=== PATIENT | male | born 1945 | race Caucasian/White ===

== ENCOUNTER → 2017-12-18 18:16 | Outpatient (REF) | payer MEDICARE, OTHER, SELFPAY | LOC: LAB 18:16 | PROVIDERS: Family Provider Family Medicine; PCP Family Medicine; Visit Provider Physician Assistant | DX: Z48.02 Encounter for removal of sutures (principal); Z53.9 Procedure and treatment not carried out, unspecified reason ==

== ENCOUNTER → 2017-12-18 19:08 | Outpatient (REF) | payer MEDICARE, OTHER, SELFPAY | LOC: LAB 19:08 | PROVIDERS: Family Provider Family Medicine; PCP Family Medicine; Visit Provider Physician Assistant | DX: Z48.02 Encounter for removal of sutures (principal); Z53.9 Procedure and treatment not carried out, unspecified reason ==

== ENCOUNTER → 2017-12-18 19:12 | Outpatient (REF) | payer MEDICARE, OTHER, SELFPAY | LOC: LAB 19:12 | PROVIDERS: Family Provider Family Medicine; PCP Family Medicine; Visit Provider Physician Assistant | DX: Z48.02 Encounter for removal of sutures (principal); Z53.9 Procedure and treatment not carried out, unspecified reason ==

== ENCOUNTER → 2017-12-18 19:23 | Outpatient (REF) | payer MEDICARE, OTHER, SELFPAY | LOC: LAB 19:23 | PROVIDERS: Family Provider Family Medicine; PCP Family Medicine; Visit Provider Physician Assistant | DX: Z53.8 Procedure and treatment not carried out for other reasons (principal) ==

== ENCOUNTER → 2017-12-18 19:26 | Outpatient (REF) | payer MEDICARE, OTHER, SELFPAY | LOC: LAB 19:26 | PROVIDERS: Family Provider Family Medicine; PCP Family Medicine; Visit Provider Physician Assistant | DX: Z48.02 Encounter for removal of sutures (principal) | CPT/HCPCS: 87070; 87075; 87147; 87205 ==

== ENCOUNTER → 2018-04-04 14:28 | Outpatient (CLI) | payer MEDICARE, OTHER, SELFPAY | PROVIDERS: Visit Provider Urology | DX: Z12.5 Encounter for screening for malignant neoplasm of prostate (principal); R97.20 Elevated prostate specific antigen [PSA] | CPT/HCPCS: 36415; 84153 ==

== ENCOUNTER → 2018-05-16 16:16 | Outpatient (CLI) | payer MEDICARE, OTHER, SELFPAY ==
[2018-05-16 17:07] LABS: BUN Creatinine Ratio 28.8 (6-22); Blood Urea Nitrogen 23 mg/dL (9-20); Estimated Glomerular Filt Rate > 60.0 mL/min (>60)
== END ==
PROVIDERS: Family Provider Family Medicine; PCP Family Medicine; Visit Provider Family Medicine
DX: Z01.812 Encounter for preprocedural laboratory examination (principal)
CPT/HCPCS: 36415; 82565; 84520

== ENCOUNTER → 2018-05-21 07:35 | Outpatient (CLI) | payer MEDICARE, OTHER, SELFPAY ==
--- NOTE | 2018-05-21 08:37 | DI.CT.S_ITS ---
PROCEDURE: CT ABDOMEN WO/W CON INDICATIONS: PANCREATIC MASS TECHNIQUE: Noncontrast 3 mm thick sections acquired through the pancreas. After the administration of intravenous contrast, 3 mm thick pancreatic-phase images acquired from the diaphragm to the iliac crests. 3 mm thick coronal and sagittal reformats were performed. For radiation dose reduction, the following was used: automated exposure control, adjustment of mA and/or kV according to patient size. COMPARISON: [facility], MR, ABDOMEN W&WO CONTRAST, 11/30/2015, 11:00. [facility], MR, ABDOMEN W&WO CONTRAST, 10/24/2015, 15:16. [facility], CT, ABDOMEN W&WO CONTRAST, 10/20/2015, 11:24. FINDINGS: Image quality: Excellent. Lung bases: Lung bases are clear. Heart size is normal. Pacer leads are seen. A small hiatal hernia is incidentally noted. Pancreas: At the tail of the pancreas, there is again seen a focus of pancreatic tissue, which enhances similarly to the surrounding normal pancreatic tissue. This is overall less apparent than on the 10/20/15 examination. No additional focal pancreatic abnormalities are seen. No dilatation of the pancreatic duct is seen. No peripancreatic inflammatory change or pseudocyst can be seen. Other solid organs: Liver is normal in size and enhancement. Gallbladder wall does not appear thickened. Biliary system is non dilated. Spleen is normal in size and enhancement. Incidental note is made of an accessory spleen along the inferior aspect of the primary spleen. No adrenal nodules. Kidneys are normal in size and enhancement, without hydronephrosis. A mildly hyperdense cyst is seen exophytic from the superior medial aspect of the right kidney that measures 11 mm and 15 Hounsfield units. A simple cyst is seen at the inferior pole of the right kidney measuring 5 Hounsfield scan 11 mm. Peritoneum and bowel: Unenhanced bowel loops demonstrate normal wall thickness and caliber. No free fluid or air. Incidental note is made of a normal-appearing appendix. Nodes and vessels: No retroperitoneal or mesenteric adenopathy by size criteria. Aorta and inferior vena cava are normal in size. Bones: No suspicious bony lesions. No vertebral body compression fractures. Age-appropriate bony degenerative changes are seen. Miscellaneous: No ventral hernias. IMPRESSION: Focal prominence of pancreatic tissue at the tail of the pancreas, which is less apparent on the current study than in 2016 and regarded to be benign. No further imaging followup is recommended. Incidental note is made of: Small hiatal hernia Pacer leads Accessory spleen Benign-appearing right renal cysts Dictated by: Khadar Pat M.D. on 05/21/2018 at 8:23 Approved by: Khadar Pat M.D. on 05/21/2018 at 8:31
== END ==
PROVIDERS: PCP Family Medicine; Visit Provider Family Medicine
DX: K86.9 Disease of pancreas, unspecified (principal); K44.9 Diaphragmatic hernia without obstruction or gangrene; N28.1 Cyst of kidney, acquired
CPT/HCPCS: 74170; Q9967

== ENCOUNTER → 2018-08-16 09:51 | Outpatient (CLI) | payer MEDICARE, OTHER, SELFPAY ==
[2018-08-16 10:27] LABS: INR 4.4 (0.9-1.3); Prothrombin Time 51.8 SECONDS (10.1-12.7)
[2018-08-16 11:15] LABS: Prostate Specific Antigen Scrn 7.62 ng/mL (0.1-4.0)
== END ==
PROVIDERS: PCP Family Medicine; Visit Provider Family Medicine
DX: N40.0 Benign prostatic hyperplasia without lower urinary tract symptoms (principal); R97.20 Elevated prostate specific antigen [PSA]; I48.91 Unspecified atrial fibrillation; Z12.5 Encounter for screening for malignant neoplasm of prostate
CPT/HCPCS: 36415; 85610; G0103

== ENCOUNTER 2018-09-29 10:00 | Outpatient (RCR) | payer MEDICARE, OTHER, SELFPAY ==
[2018-06-03 08:26] VITALS: BP 126/88; BP 128/90; O2SAT 96
--- NOTE | 2018-06-03 10:55 | PR.IEVALNOTE ---
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 Pulmonary Rehab Initial Evaluation [place] Pulmonary Rehab Inital Assessment Start: 06/02/18 08:15 Freq: Status: Active Protocol: Document 06/03/18 08:26 GIOVANNI (Rec: 06/03/18 08:31 GIOVANNI [id number]) SC Exercise Assessment Dx: COPD Primary Language [place] [employer]ker Required No Hearing Ability Normal Visual Impairment No Limitations Visual Difficutly None Musculoskeletal Symptoms Joint Pain Body Alignment Posture Good Posture Relaxed Assistive Devices None Comment R knee pain 3/10 History of Falling (Immediate or No Previous) Secondary Diagnosis (More Than 2 Medical Yes Diagnoses) Ambulatory Aid None/bed rest/nurse assist IV/Heparin Lock No Gait/Transfer Normal/bedrest/immobile Mental Status Oriented to own ability Comment exercise bike 1-2x month, walks 1-2 miles mostly level ground 2-3 month; physical deconditioning and decreased exercise tolerance SC Vital Signs Pulse Oximetry (91-100 %) 96 Respiratory Effort Non-Labored Respiratory Depth Normal Assessment clear to auscultation no wheezes rales ronchi Right Arm Blood Pressure (90/60-140/90 mmHg) 126/88 Blood Pressure Method Manual Cuff/Auscultation Blood Pressure Position Sitting Left Arm Blood Pressure (90/60-140/90 mmHg) 128/90 Blood Pressure Method Manual Cuff/Auscultation Blood Pressure Position Sitting SC Six Minute Walk Test Oxygen Delivery Method Room Air Respiratory Rate (breaths/min) 16 Pulse Rate (beats/min) 61 O2 Saturation by Pulse Oximetry (%) 96 Respiratory Rate (breaths/min) 18 Pulse Rate (beats/min) 88 Ambulation Distance (feet) 200 O2 Saturation by Pulse Oximetry (%) 93 Pulse Rate (beats/min) 87 Ambulation Distance (feet) 250 O2 Saturation by Pulse Oximetry (%) 95 Ambulatory Distance (feet) 250 Pulse Rate (beats/min) 89 Ambulation Distance (feet) 250 O2 Saturation by Pulse Oximetry (%) 96 Pulse Rate (beats/min) 89 Ambulation Distance (feet) 250 O2 Saturation by Pulse Oximetry (%) 96 PUlse Rate (beats/min) 88 Ambulation Distance (feet) 250 O2 Saturation by Pulse Oximetry (%) 88 Respiratory Rate (breaths/min) 14 Pulse Rate (beats/min) 62 O2 Saturation by Pulse Oximetry (%) 98 Activity Tolerance Good Distance 1450 Rody RPE Scale 12 Oriented to RPE Scale Yes Dyspnea 2.5 Oriented to Dyspnea Scale Yes SC Exercise Goals Exercise Goals Treadmill, Nustep, OSMAR, Elliptical, bike( recumbent and upright) DASI Number and Comment 7.98 Short Term Improve exercise 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 Volume/Forced Vital Cap 71 97% Ratio (FEV1/FVC Ratio) Forced Expiratory Volume in 1 sec. 3.20 90% Diffusing Capacity of the Lung (DLCO) 89% SC Education Pre-Test Score 100 Tobacco Use Former, Quit >6 Months Tobacco Product Used cigarettes Total Years Used 8 Packs Per Day 1 Environmental/Occupational Exposure paint and solvent fumes Use Yes Type wine Amount 1-2 glasses Frequency daily Concerns None Education Topics Breathing Retraining Discussed Education Requirements on Yes Intake SC Psychosocial Initial Assess HADS Score 5 HADS Score 4 Marital Status Referral Needed No
--- NOTE | 2018-07-03 16:06 | PR.REVALNOTE ---
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 Re-Assessment Start: 06/02/18 08:15 Freq: Status: Active Protocol: Document 07/03/18 15:50 [facility] (Rec: 07/03/18 16:06 GIOVANNI [id number]) IN Exercise Re-Assessment New Session Number 1-11 Type Nustep Treadmill METs (resistance level) 3.69 NUSTEP,5.78TM % Improvement 16% TM 12.5% NS Interval Training Yes: 6.41 NS, 7.85 TM Shortness of Breath with Exercise Yes Desaturation with Exercise No Free Weight Yes: 6# 12R 2S Band Level Yes: #6 IN Education Re-Assessment Topics Description and Interpretation Medical Tests Breathing Retraining Bronchial Hygiene Medication Benefits of Exercise Goals Pt will Master PLB and Diaphragmatic Breathing Pt will Master Energy Conserving Techniques Pt will learn exercise safety Pt will continue ED topics until completion IN Psychosocial Re-Assessment Patient in Class Regularly Yes Interventions Pt attending class regularly Goals Pt will continue to attend classes 3x wk Participate in social and educational discussion Received emotional support from family/friends
--- NOTE | 2018-07-31 16:16 | PR.REVALNOTE ---
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 Re-Assessment Start: 06/02/18 08:15 Freq: Status: Active Protocol: Document 07/03/18 15:50 [facility] (Rec: 07/03/18 16:06 GIOVANNI [id number]) ID Exercise Re-Assessment New Session Number 1-11 Type Nustep Treadmill METs (resistance level) 3.69 NUSTEP,5.78TM % Improvement 16% TM 12.5% NS Interval Training Yes: 6.41 NS, 7.85 TM Shortness of Breath with Exercise Yes Desaturation with Exercise No Free Weight Yes: 6# 12R 2S Band Level Yes: #6 ID Education Re-Assessment Topics Description and Interpretation Medical Tests Breathing Retraining Bronchial Hygiene Medication Benefits of Exercise Goals Pt will Master PLB and Diaphragmatic Breating Pt will Master Energy Conserving Techniques Pt will learn exercise safety Pt will continue ED topics until completion ID Psychosocial Re-Assessment Patient in Class Regularly Yes Interventions Pt attending class regularly Goals Pt will continue to attend classes 3x wk Participate in social and educational discussion Received emotional support from family/friends Document 07/31/18 16:07 GIOVANNI (Rec: 07/31/18 16:15 GIOVANNI [id number]) ID Exercise Re-Assessment New Session Number 12-21 Type Nustep Treadmill METs (resistance level) 3.69NS, 6.71TM % Improvement 7%NS, 16%TM Interval Training Yes: 7.74NS, 7.02TM Shortness of Breath with Exercise Yes Desaturation with Exercise No Free Weight Yes: 6# 12R 2S Band Level Yes: #6 Toward Target Goals PATIENT HAS INITIATED INDEPENDENT EXERCISE 1-2 X/ WEEK-GOAL MET ID Nutrition Re-Assessment Hypoxia Re-Assessment PATIENT DOES NOT REQUIRE SUPPLEMENTAL OXYGEN AT THIS TIME ID Education Re-Assessment Topics Normal Anatomy and Physiology Chronic Lung Disease Description and Interpretation Medical Tests Breathing Retraining Bronchial Hygiene Benefits of Exercise Goals Pt will Master PLB and Diaphragmatic Breathing Pt will Master Energy Conserving Techniques Pt will learn exercise safety Pt will continue ED topics until completion ID Psychosocial Re-Assessment Patient in Class Regularly Yes Interventions Pt attending class regularly Goals Pt will continue to attend classes 3x wk Participate in social and educational discussion Received emotional support from family/friends
--- NOTE | 2018-09-10 09:46 | PR.REVALNOTE ---
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 Shaun Melvin MD Attending Provider Physician Specialty: Internal Medicine Address: [address] [place] [address] Email: [email or web address] Pulmonary Rehab Re-Evaluation [place] Pulmonary Rehab. Re-Assessment Start: 06/02/18 08:15 Freq: Status: Active Protocol: Document 07/03/18 15:50 [facility] (Rec: 07/03/18 16:06 GIOVANNI [id number]) [place] Exercise Re-Assessment New Session Number 1-11 Type Nustep Treadmill METs (resistance level) 3.69 NUSTEP,5.78TM % Improvement 16% TM 12.5% NS Interval Training Yes: 6.41 NS, 7.85 TM Shortness of Breath with Exercise Yes Desaturation with Exercise No Free Weight Yes: 6# 12R 2S Band Level Yes: #6 NH Education Re-Assessment Topics Description and Interpretation Medical Tests Breathing Retraining Bronchial Hygiene Medication Benefits of Exercise Goals Pt will Master PLB and Diaphragmatic Breating Pt will Master Energy Conserving Techniques Pt will learn exercise safety Pt will continue ED topics until completion NH Psychosocial Re-Assessment Patient in Class Regularly Yes Interventions Pt attending class regularly Goals Pt will continue to attend classes 3x wk Participate in social and educational discussion Received emotional support from family/friends Document 07/31/18 16:07 GIOVANNI (Rec: 07/31/18 16:15 GIOVANNI [id number]) [place] Exercise Re-Assessment New Session Number 12-21 Type Nustep Treadmill METs (resistance level) 3.69NS, 6.71TM % Improvement 7%NS, 16%TM Interval Training Yes: 7.74NS, 7.02TM Shortness of Breath with Exercise Yes Desaturation with Exercise No Free Weight Yes: 6# 12R 2S Band Level Yes: #6 Toward Target Goals PATIENT HAS INITIATED INDEPENDENT EXERCISE 1-2 X/ WEEK-GOAL MET NH Nutrition Re-Assessment Hypoxia Re-Assessment PATIET DOES NOT REQUIRE SUPPLEMENTAL OXYGEN AT THIS TIME NH Education Re-Assessment Topics Normal Anatomy and Physiology Chronic Lung Disease Description and Interpretation Medical Tests Breathing Retraining Bronchial Hygiene Benefits of Exercise Goals Pt will Master PLB and Diaphragmatic Breating Pt will Master Energy Conserving Techniques Pt will learn exercise safety Pt will continue ED topics until completion NH Psychosocial Re-Assessment Patient in Class Regularly Yes Interventions Pt attending class regularly Goals Pt will continue to attend classes 3x wk Participate in social and educational discussion Received emotional support from family/friends Document 09/10/18 09:32 GIOVANNI (Rec: 09/10/18 09:46 GIOVANNI [id number]) [place] Exercise Re-Assessment New Session Number 12-24 Type Nustep Treadmill METs (resistance level) 3.96 NS, 6.36 TM % Improvement 7% NS, 10% TM Interval Training Yes: 6.41 METS NS, 7.85 METS TM Shortness of Breath with Exercise Yes Desaturation with Exercise No Free Weight Yes: 6# 12R 2S Band Level #5 BAND Toward Target Goals INCREASED PARTICIPATION IN PHYSICAL ACTIVITIES IMPROVED FUNCTIONAL CAPACITY WITH IMPROVED ENDURANCE AND STRENGTH, PARTICIPATES IN AEROBIC EXERCISE 30-60 MIN. 3X WEEK RPE 11-13 DYSPNEA 3- GOAL MET AND SHOWING PROGRESS NH Education Re-Assessment Topics Normal Anatomy and Physiology Chronic Lung Disease Description and Interpretation Medical Tests Breathing Retraining Benefits of Exercise Activities of daily living/ Leisure Activities Coping with Chronic Lung Disease Asthma Goals Pt will Master PLB and Diaphragmatic Breathing Pt will Master Energy Conserving Techniques Pt will learn exercise safety Pt will continue ED topics until completion [place] Psychosocial Re-Assessment Patient in Class Regularly Yes Interventions Pt attending class regularly Goals Pt will continue to attend classes 3x wk Participate in social and educational discussion Received emotional support from family/friends
--- NOTE | 2018-10-07 13:40 | PR.DCNOTE ---
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 Shaun Melvin MD Attending Provider Physician Specialty: Internal Medicine Address: [address] [place] [address] Email: [email or web address] Pulmonary Rehab Discharge Evaluation [place] Pulmonary Rehab. DC Assessment Start: 06/02/18 08:15 Freq: Status: Active Protocol: Document 10/07/18 13:14 GIOVANNI (Rec: 10/07/18 13:36 GIOVANNI [id number]) [place] Exercise Discharge Assess Session 9 Type Nustep Treadmill Rower Elliptical METs (resistance level) 4.01 NS, 7.19 TM % Improvement 2.7% NS, 13% TM Interval Training Yes: 8.08 mets 68% overall improvement Shortness of Breath with Exercise Yes Desaturation with Exercise No Free Weight Yes Band Level Yes Toward Target Goals Increased participation in physical activities particpates in independent exercise- goal met UT Nutrition DC Assessment Goals Pt will continue focusing on weight loss Pt will continue to learn tips Patient Ready Yes Reason Completed Max Sessions UT Education DC Assessment Post Test Score 100% Education Topics Normal Pulmonary Anatomy and Physiology Chronic Lung Disease Description and Interpretation of Medical Tests Breathing Retraining Bronchial Hygiene Medications Benefits of Exercise Activities of Daily Living/ Leisure Activities Eating Right Irritant Avoidance/Prevention of Respiratory Infection Coping with Chronic Lung Disease Oxygen How and When Metabolic Syndrome Asthma Education Target Goals Pt was educated on home exercise prescription Pt educated on home resistance training Pt educated on oxygen therapy for home PT educated on medication's taken at home Pt educated on PBL and relaxation techniques UT Psychosocial DC Assessment HADS Depression Score 3 HADS Anxiety Score 1 Phase III Yes UT Six Minute Walk Test Oxygen Delivery Method Room Air Respiratory Rate (breaths/min) 14 Pulse Rate (beats/min) 73 O2 Saturation by Pulse Oximetry (%) 93 Pulse Rate (beats/min) 78 Ambulation Distance (feet) 250 O2 Saturation by Pulse Oximetry (%) 93 Pulse Rate (beats/min) 80 Ambulation Distance (feet) 250 O2 Saturation by Pulse Oximetry (%) 94 Pulse Rate (beats/min) 82 Ambulatory Distance (feet) 300 O2 Saturation by Pulse Oximetry (%) 95 Pulse Rate (beats/min) 83 Ambulation Distance (feet) 350 O2 Saturation by Pulse Oximetry (%) 96 Pulse Rate (beats/min) 85 Ambulation Distance (feet) 300 O2 Saturation by Pulse Oximetry (%) 95 PUlse Rate (beats/min) 90 Ambulation Distance (feet) 300 O2 Saturation by Pulse Oximetry (%) 97 Respiratory Rate (breaths/min) 16 Pulse Rate (beats/min) 72 O2 Saturation by Pulse Oximetry (%) 97 Activity Tolerance Excellent Distance 1750 20% improvement 3.54 mets 13% improvement Rody RPE Scale 11 Oriented to RPE Scale Yes Dyspnea 2.5 Oriented to Dyspnea Scale Yes
== END 2018-10-15 08:05 ==
LOC: PUL 10:00
PROVIDERS: PCP Family Medicine; Visit Provider Internal Medicine
DX: J44.9 Chronic obstructive pulmonary disease, unspecified (principal)
CPT/HCPCS: G0424

== ENCOUNTER → 2019-01-08 09:54 | Outpatient (CLI) | payer MEDICARE, OTHER, SELFPAY ==
[2019-01-08 11:02] LABS: Alanine Aminotransferase 21 IU/L (21-72); Albumin Globulin Ratio 1.5 (1.0-2.8); Alkaline Phosphatase 103 U/L (38-126); Aspartate Aminotransferase 16 IU/L (17-59); BUN Creatinine Ratio 34.3 (6-22); Bilirubin Total 0.6 mg/dL (0.2-1.3); Blood Urea Nitrogen 24 mg/dL (9-20); Calcium 9.2 mg/dL (8.4-10.2); Carbon Dioxide 27 mmol/L (22-32); Chloride 106 mmol/L (98-107); Estimated Glomerular Filt Rate > 60.0 mL/min (>60); Globulin 2.7 g/dL (1.7-4.1); Glucose 90 mg/dL (80-110); HEMOLYSIS < 15 (0-50); Potassium 4.3 mmol/L (3.4-5.1); Sodium 142 mmol/L (137-145); Total Protein 6.7 g/dL (6.3-8.2)
== END ==
PROVIDERS: PCP Family Medicine; Visit Provider Internal Medicine Cardiovascular Disease
DX: I49.5 Sick sinus syndrome (principal); I48.1 Persistent atrial fibrillation
CPT/HCPCS: 36415; 80053

== ENCOUNTER → 2019-02-18 07:05 | Outpatient (CLI) | payer MEDICARE, OTHER, SELFPAY ==
[2019-02-18 08:19] LABS: Add Manual Diff / Slide Review NO; Basophils Absolute Auto 0 /uL (0-100); Basophils Percent Auto 0.8 % (0-2); Eosinophils Absolute Auto 100 /uL (0-450); Eosinophils Percent Auto 1.8 % (2-4); Hematocrit 45.5 % (41-53); Hemoglobin 15.6 g/dL (13.5-17.5); Lymphocytes Absolute Auto 800 /uL (1100-4500); Lymphocytes Percent Auto 15.3 % (25-40); Mean Corpuscular HGB Conc 34.3 % (30-36); Mean Corpuscular Hemoglobin 29.4 PG (26-34); Mean Corpuscular Volume 85.7 fL (80-100); Monocytes Absolute Auto 600 /uL (0-900); Monocytes Percent Auto 11.1 % (3-14); Neutrophils Absolute Auto 3700 /uL (1500-7000); Platelet Count 195 X10^3/uL (150-400); Red Blood Cell Count 5.31 X10^6/uL (4.5-5.9); Red Cell Distribution Width 14.5 % (11.6-14.8); White Blood Cell Count 5.2 X10^3/uL (4.5-11.0)
[2019-02-18 08:32] LABS: Alanine Aminotransferase 32 IU/L (21-72); Albumin 4.3 g/dL (3.5-5.0); Albumin Globulin Ratio 1.4 (1.0-2.8); Alkaline Phosphatase 90 U/L (38-126); Aspartate Aminotransferase 23 IU/L (17-59); BUN Creatinine Ratio 26.3 (6-22); Blood Urea Nitrogen 21 mg/dL (9-20); Calcium 9.5 mg/dL (8.4-10.2); Carbon Dioxide 27 mmol/L (22-32); Chloride 105 mmol/L (98-107); Cholesterol 144 mg/dL (140-199); Estimated Glomerular Filt Rate > 60.0 mL/min (>60); Globulin 3.1 g/dL (1.7-4.1); Glucose 109 mg/dL (80-110); HDL Cholesterol 36 mg/dL (40-60); HEMOLYSIS < 15 (0-50); LDL Cholesterol Calculated 90 mg/dL (<100); Sodium 143 mmol/L (137-145); Total Protein 7.4 g/dL (6.3-8.2); Triglycerides 92 mg/dL (35-150)
[2019-02-18 09:00] LABS: Prostate Specific Antigen Scrn 5.46 ng/mL (0.1-4.0)
[2019-02-18 09:07] LABS: TSH w/ Reflex to FT4 2.93 uIU/mL (0.47-4.68)
[2019-02-18 09:34] LABS: Folate > 20.0 ng/mL (2.76-20.0); Vitamin B12 395 pg/mL (239-931)
== END ==
PROVIDERS: PCP Family Medicine; Visit Provider Family Medicine
DX: R97.20 Elevated prostate specific antigen [PSA] (principal); I25.10 Atherosclerotic heart disease of native coronary artery without angina pectoris; I48.91 Unspecified atrial fibrillation; Z79.01 Long term (current) use of anticoagulants; G62.9 Polyneuropathy, unspecified; Z12.5 Encounter for screening for malignant neoplasm of prostate
CPT/HCPCS: 36415; 80053; 80061; 82607; 82746; 84153; 84443; 85025; G0103

== ENCOUNTER → 2019-03-04 11:37 | Outpatient (CLI) | payer MEDICARE, OTHER, SELFPAY ==
[2019-03-04 12:33] LABS: Appearance Urine UA CLEAR; Bilirubin Urine UA NEGATIVE (NEGATIVE); Color Urine UA YELLOW; Glucose Urine UA NEGATIVE (Negative); Ketones Urine UA NEGATIVE (NEGATIVE); Leukocyte Esterase Urine UA NEGATIVE (NEGATIVE); Nitrite Urine UA NEGATIVE (Negative); Occult Blood Urine UA TRACE-LYSED (Negative); Protein Urine UA NEGATIVE (Negative); Urobilinogen Urine UA 0.2 E.U./dL (0.2); pH Urine UA 6.5 (4.5-8.0)
== END ==
PROVIDERS: PCP Family Medicine; Visit Provider Family Medicine
DX: R35.0 Frequency of micturition (principal); R30.0 Dysuria
CPT/HCPCS: 81003

== ENCOUNTER → 2019-04-16 11:06 | Outpatient (CLI) | payer MEDICARE, OTHER, SELFPAY | PROVIDERS: PCP Family Medicine; Visit Provider Family Medicine | DX: R30.0 Dysuria (principal) | CPT/HCPCS: 87086 ==

== ENCOUNTER 2019-04-16 19:44 | Emergency (ER) | payer MEDICARE, OTHER, SELFPAY ==
[2019-04-16 19:49] VITALS: BP 219/106; PULSE 74; RESP 18; TEMP 35.6; O2SAT 95
--- NOTE | 2019-04-16 20:00 | ED.MALEGU ---
HPI - Male Genitourinary General Chief complaint: Urogenital-Male Stated complaint: difficulty urinating Time Seen by Provider: 04/16/19 19:47 Source: patient Mode of arrival: Ambulatory Limitations: no limitations History of Present Illness HPI Narrative: 73-year-old male former smoker with history of hypertension, AFib, BPH presents with his in the chief complaint of increasing difficulty with urination over the past 24 hours or so and now complete inability to urinate for about the past 8 hours. He admits to frequent visits to the bathroom at night for quite some time and has had some elevating BPH in the past. He denies any dysuria, or hematuria but has had frequency and urgency off and on for some time. He denies any suprapubic or rectal pain nor any fever or shaking chills. He went to his primary care provider earlier today and was diagnosed with possible prostatitis and initiated on antibiotics. His symptoms have worsened since then and on arrival he is quite uncomfortable. He denies any other new medications. He has no back pain no or saddle anesthesia, nor lower extremity weakness. MD Complaint: other Onset (ago): hour(s) Duration: constant Severity: moderate Quality: aching Relieving factors: none Exacerbating factors: movement Associated symptoms: Reports denies other symptoms Related Data Home Medications Medication Instructions Recorded Confirmed cholecalciferol (vitamin D3) 3,000 iu #0 03/02/16 04/16/19 [Vitamin D3] lisinopril 5 mg PO QDAY #0 04/18/16 04/16/19 Respironics RemStar CPAP #1 ea 08/01/18 04/16/19 Previous Rx's Medication Instructions Recorded nitroglycerin [Nitrostat] 0.4 mg SUBLINGUAL PRN PRN #25 tab 03/02/16 metoprolol tartrate 50 mg tablet 50 mg PO BID #180 tab 08/20/18 omeprazole 40 mg capsule,delayed 40 mg PO HS #90 cap 08/29/18 release warfarin 5 mg tablet 5 mg PO SEE INSTRUCTIONS #100 tab 10/28/18 sulfamethoxazole 800 1 tab PO BID #60 tab 04/16/19 mg-trimethoprim 160 mg tablet tamsulosin 0.4 mg capsule 0.4 mg PO DAILY #90 cap 04/16/19 Allergies Allergy/AdvReac Type Severity Reaction Status Date / Time No Known Drug Allergies Allergy Verified 04/16/19 09:59 Patient History Medical History (Updated 04/16/19 @ 20:48 by Venancio Garland DO) Atrial fibrillation (Chronic 10/2014) BCC (basal cell carcinoma of skin) (Resolved) BPH (benign prostatic hyperplasia) (Chronic) Chicken pox (Resolved 1951) GERD (gastroesophageal reflux disease) (Chronic ~1994) Herpes (Resolved 1976) Knee pain (Chronic 1995) Measles (Resolved ~1949) Mumps (Resolved ~1949) Obstructive sleep apnea of adult (Chronic) Snoring (Inactive) 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) Surgical History (Updated 01/31/19 @ 14:28 by CLARA Zarate) Anesthesia (Resolved) History of colonoscopy (Resolved 2004) History of esophagogastroduodenoscopy (EGD) (Resolved 11/11/12) History of esophagogastroduodenoscopy (EGD) (Resolved 10/20/10) History of left heart catheterization (Resolved 03/2016) History of right knee surgery (Resolved 06/26/07) History of squamous cell carcinoma excision (Resolved 08/14/17) History of total left knee replacement (TKR) (Resolved 04/23/16) Status post arthroscopy (Resolved ~1996) Status post arthroscopy (Resolved ~2002) Status post arthroscopy (04/23/16) Status post biopsy (10/20/10) Status post colonoscopy (Resolved) Status post Mohs surgery for basal cell carcinoma (Resolved 2004) Status post placement of cardiac pacemaker (Resolved 12/13/15) Status post surgical manipulation of knee joint (Resolved 07/26/16) Family History Father Cancer Lung cancer Grandfather Cancer Cancer of kidney Mother Atherosclerosis AAA (abdominal aortic aneurysm) Sister Age: 71 Obese Chronic knee pain Chronic foot pain Brother No problems noted. Grandmother Dementia Grandfather No problems noted. Grandmother Brain tumor Sister Fibromyalgia Other CAD (coronary artery disease) Hypertension Social History marital status: details: elvia Romeo, lives in [place] household members: spouse lives independently: Yes caregiver/support person: No housing: house Smoking Status: Former smoker Tobacco: How many years used: 8 alcohol intake: current substance use type: does not use Social History marital status: details: elvia Romeo, lives in [place] household members: spouse lives independently: Yes caregiver/support person: No housing: house Smoking Status: Former smoker Tobacco: How many years used: 8 alcohol intake: current substance use type: does not use alcohol intake frequency: 0-2 drinks per day Alcohol type: wine Substance Use Type: does not use Exam Narrative Exam Narrative: GEN: AOx3 and in mild distress EYES: Pupils are equal, round, and reactive to light and accommodation. Extraoccular muscles are intact bilaterally. There is no subconjunctival hemorrhage or exudate. CHEST: Lungs are clear to auscultation bilaterally and free of wheezes, rales, or rhonchi. Heart rate is regular rhythm, there are no murmurs, clicks, rubs, or gallops. There is no chest wall tenderness. ABD: Abdomen is soft and nontender. There is no guarding or rebound. Bowel sounds are normal in all 4 quadrants. There is no mass or organomegaly. EXT: Full painless ROM of all extremities with no loss of sensation or strength. SKIN: Warm, pink, and dry. No erythema or rash Initial Vital Signs Initial Vital Signs: Vital Signs Temperature 96.0 F L 04/16/19 19:49 Pulse Rate 74 04/16/19 19:49 Respiratory Rate 18 04/16/19 19:49 Blood Pressure 219/106 H 04/16/19 19:49 Pulse Oximetry 95 04/16/19 19:49 Course Orders Ordered: ED Orders 04/16/19 20:26 Basic Metabolic Panel Stat Complete Blood Count AUTO DIFF Stat Reevaluation(s) Reevaluation #1: Near immediate relief after robles placed with 800mL out. Vital Signs Vital signs: Vital Signs - 8 hr 04/16/19 19:49 04/16/19 20:34 Temperature 96.0 F L Pulse Rate 74 89 Respiratory Rate 18 18 Blood Pressure 219/106 H Blood Pressure [Right Arm] 141/87 H Pulse Oximetry 95 95 MDM - Male Genitourinary Lab Data Result diagrams: 04/16/19 20:26 04/16/19 20:26 Labs: Lab Results 04/16/19 04/16/19 Range/Units 20:26 20:26 WBC 9.8 (4.5-11.0) X10^3/uL RBC 5.36 (4.5-5.9) X10^6/uL Hgb 15.6 (13.5-17.5) g/dL Hct 45.8 (41-53) % MCV 85.3 (80-100) fL MCH 29.1 (26-34) PG MCHC 34.1 (30-36) % RDW 14.5 (11.6-14.8) % Plt Count 182 (150-400) X10^3/uL Neut % (Auto) 83.1 H (50-75) % Lymph % (Auto) 6.4 L (25-40) % [place] % (Auto) 9.7 (3-14) % Eos % (Auto) 0.3 L (2-4) % Baso % (Auto) 0.5 (0-2) % Neut # (Auto) 8100 H (0666-8619) /uL Lymph # (Auto) 600 L (9747-0238) /uL [place] # (Auto) 1000 H (0-900) /uL Eos # (Auto) 0 (0-450) /uL Baso # (Auto) 0 (0-100) /uL Sodium 137 (137-145) mmol/L Potassium 3.6 (3.4-5.1) mmol/L Chloride 104 (98-107) mmol/L Carbon Dioxide 21 L (22-32) mmol/L BUN 22 H (9-20) mg/dL Creatinine 0.70 (0.66-1.25) mg/dL Estimated GFR > 60.0 (>60) mL/min BUN/Creatinine Ratio 31.4 H (6-22) Glucose 107 (80-110) mg/dL Calcium 9.3 (8.4-10.2) mg/dL Urine Dip Bedside Urine Glucose Negative Bedside Urine Bilirubin - Negative Bedside Urine Ketone + 15 Urine Specific [place]mill[place] 1.020 Bedside Urine Occult Blood + Bedside Urine pH 6.0 Bedside Urine Protein +/- 15 Bedside Urine Urobilinogen - Negative Bedside Urine Nitrite - Negative Bedside Urine Leukocytes - Negative Esterase Discharge Plan Departure Patient Disposition: Home Clinical Impression: Acute urinary retention Discharge Date/Time: 04/16/19 21:37 Instructions: DI for Urinary Retention in Men Activity Restrictions/Additional Instructions: *You have been diagnosed with [acute urinary retention] *What to do: *Take medications as directed *Follow up with your urologist, call for an appointment. Let them know you were seen in the Emergency Department and that we ask that you be seen in follow up *Return to ER if you should have any new, worsening or concerning symptoms, such as [increasing pain, catheter not draining, fever, shaking chills, vomiting or other bothersome symptoms] Prescriptions: No Action sulfamethoxazole-trimethoprim [Bactrim DS] 800-160 mg tablet 1 tab PO BID Qty: 60 RF: 0 tamsulosin [Flomax] 0.4 mg capsule 0.4 mg PO DAILY Qty: 90 RF: 3 cholecalciferol (vitamin D3) [Vitamin D3] 2,000 UNIT capsule 3,000 iu Qty: 0 RF: 0 nitroglycerin [Nitrostat] 0.4 MG tablet, sublingual 0.4 mg Sublingual PRN PRNQty: 25 RF: 12 lisinopril 5 MG tablet 5 mg PO QDAY Qty: 0 RF: 0 metoprolol tartrate 50 mg tablet 50 mg PO BID Qty: 180 RF: 3 omeprazole 40 mg capsule,delayed release(DR/EC) 40 mg PO HS Qty: 90 RF: 3 warfarin [Coumadin] 5 mg tablet 5 mg PO SEE INSTRUCTIONS Qty: 100 RF: 3 (DME) Respironics RemStar CPAP Qty: 1 RF: 0 Referrals: Flori Gar MD [Non-Staff] - Indra Beal MD [Primary Care Provider] -
[2019-04-16 20:34] VITALS: BP 141/87; PULSE 89; RESP 18; O2SAT 95
[2019-04-16 20:34] LABS: Add Manual Diff / Slide Review NO; Basophils Absolute Auto 0 /uL (0-100); Basophils Percent Auto 0.5 % (0-2); Eosinophils Absolute Auto 0 /uL (0-450); Eosinophils Percent Auto 0.3 % (2-4); Hematocrit 45.8 % (41-53); Hemoglobin 15.6 g/dL (13.5-17.5); Lymphocytes Absolute Auto 600 /uL (1100-4500); Lymphocytes Percent Auto 6.4 % (25-40); Mean Corpuscular HGB Conc 34.1 % (30-36); Mean Corpuscular Hemoglobin 29.1 PG (26-34); Mean Corpuscular Volume 85.3 fL (80-100); Monocytes Absolute Auto 1000 /uL (0-900); Monocytes Percent Auto 9.7 % (3-14); Neutrophils Absolute Auto 8100 /uL (1500-7000); Neutrophils Percent Auto 83.1 % (50-75); Platelet Count 182 X10^3/uL (150-400); Red Blood Cell Count 5.36 X10^6/uL (4.5-5.9); Red Cell Distribution Width 14.5 % (11.6-14.8); White Blood Cell Count 9.8 X10^3/uL (4.5-11.0)
[2019-04-16 20:44] LABS: BUN Creatinine Ratio 31.4 (6-22); Blood Urea Nitrogen 22 mg/dL (9-20); Calcium 9.3 mg/dL (8.4-10.2); Carbon Dioxide 21 mmol/L (22-32); Chloride 104 mmol/L (98-107); Estimated Glomerular Filt Rate > 60.0 mL/min (>60); Glucose 107 mg/dL (80-110); HEMOLYSIS < 15 (0-50); Potassium 3.6 mmol/L (3.4-5.1); Sodium 137 mmol/L (137-145)
--- NOTE | 2019-04-16 21:20 | PC.NURSE ---
Educated pt and spouse on catheter care, including night bag and leg bag. how to clean catheter. pt able to state understanding and demonstrating bag change.
== END 2019-04-16 21:37 | disposition home or self-care (01) ==
PROVIDERS: Emergency Provider Emergency Medicine; Family Provider Family Medicine; PCP Family Medicine
DX: R33.9 Retention of urine, unspecified (principal); R30.0 Dysuria
CPT/HCPCS: 36415; 51701; 80048; 81003; 85025; 87086; 99283

== ENCOUNTER → 2019-04-20 07:20 | Outpatient (CLI) | payer MEDICARE, OTHER, SELFPAY | PROVIDERS: PCP Family Medicine; Visit Provider Urology | DX: R97.20 Elevated prostate specific antigen [PSA] (principal) | CPT/HCPCS: 36415; 84153 ==

== ENCOUNTER 2019-04-28 06:43 | Emergency (ER) | payer MEDICARE, OTHER, SELFPAY ==
[2019-04-28 06:46] VITALS: BP 170/129; PULSE 105; RESP 16; O2SAT 96; BMI 31.2
--- NOTE | 2019-04-28 06:59 | ED_ITS ---
HPI - General Adult General Chief complaint: Urogenital-Male Stated complaint: can't pee Time Seen by Provider: 04/28/19 06:46 Source: patient Mode of arrival: Ambulatory Limitations: no limitations History of Present Illness HPI narrative: Patient is a 73-year-old male. Has a history of BPH. Was seen here in the emergency department approximately 10 days ago for acute urinary retention. At that point he was on Bactrim prescribed by his primary provider for a presumed urinary tract infection/prostatitis. Yesterday he saw Urology. Had the catheter removed yesterday. Had a follow-up later in the day where he had a bladder scan. Patient's states that ?everything seemed to be okay ?overnight started have urinary retention again. Related Data Home Medications Medication Instructions Recorded Confirmed cholecalciferol (vitamin D3) 3,000 iu #0 03/02/16 04/16/19 [Vitamin D3] lisinopril 5 mg PO QDAY #0 04/18/16 04/16/19 Respironics RemStar CPAP #1 ea 08/01/18 04/16/19 Previous Rx's Medication Instructions Recorded nitroglycerin [Nitrostat] 0.4 mg SUBLINGUAL PRN PRN #25 tab 03/02/16 metoprolol tartrate 50 mg tablet 50 mg PO BID #180 tab 08/20/18 omeprazole 40 mg capsule,delayed 40 mg PO HS #90 cap 08/29/18 release warfarin 5 mg tablet 5 mg PO SEE INSTRUCTIONS #100 tab 10/28/18 sulfamethoxazole 800 1 tab PO BID #60 tab 04/16/19 mg-trimethoprim 160 mg tablet tamsulosin 0.4 mg capsule 0.4 mg PO DAILY #90 cap 04/16/19 lidocaine 1 applictn TOP BID PRN #15 gram 04/28/19 Allergies Allergy/AdvReac Type Severity Reaction Status Date / Time No Known Drug Allergies Allergy Verified 04/16/19 09:59 Review of Systems Constitutional Constitutional: Denies fever(s) Cardiovascular Cardiovascular: Denies chest pain and Denies dyspnea Respiratory Respiratory: Denies dyspnea Gastrointestinal Gastrointestinal: Denies abdominal pain, Denies nausea and Denies vomiting Genitourinary Genitourinary: Reports urinary hesitancy Comments: Urinary retention Musculoskeletal Musculoskeletal: Denies myalgias and Denies arthralgias Integumentary/Breasts Skin/Breast: Denies lesions and Denies rash Neurologic Neurologic: Denies behavioral changes Psychiatric Psychiatric: Denies behavioral changes Hematologic/Lymphatic Hematologic/Lymphatic: Denies easy bleeding and Denies easy bruising Patient History Medical History Atrial fibrillation (Chronic 10/2014) BCC (basal cell carcinoma of skin) (Resolved) BPH (benign prostatic hyperplasia) (Chronic) Chicken pox (Resolved 1951) GERD (gastroesophageal reflux disease) (Chronic ~1994) Herpes (Resolved 1976) Knee pain (Chronic 1995) Measles (Resolved ~1949) Mumps (Resolved ~1949) Obstructive sleep apnea of adult (Chronic) Snoring (Inactive) 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) Surgical History (Updated 01/31/19 @ 14:28 by CLARA Zarate) Anesthesia (Resolved) History of colonoscopy (Resolved 2004) History of esophagogastroduodenoscopy (EGD) (Resolved 11/11/12) History of esophagogastroduodenoscopy (EGD) (Resolved 10/20/10) History of left heart catheterization (Resolved 03/2016) History of right knee surgery (Resolved 06/26/07) History of squamous cell carcinoma excision (Resolved 08/14/17) History of total left knee replacement (TKR) (Resolved 04/23/16) Status post arthroscopy (Resolved ~1996) Status post arthroscopy (Resolved ~2002) Status post arthroscopy (04/23/16) Status post biopsy (10/20/10) Status post colonoscopy (Resolved) Status post Mohs surgery for basal cell carcinoma (Resolved 2004) Status post placement of cardiac pacemaker (Resolved 12/13/15) Status post surgical manipulation of knee joint (Resolved 07/26/16) Social History marital status: details: elvia Romeo, lives in [place] household members: spouse lives independently: Yes caregiver/support person: No housing: house Smoking Status: Former smoker Tobacco: How many years used: 8 alcohol intake: current substance use type: does not use alcohol intake frequency: 0-2 drinks per day Alcohol type: wine Substance Use Type: does not use Exam Initial Vital Signs Initial Vital Signs: Vital Signs Pulse Rate 105 H 04/28/19 06:46 Respiratory Rate 16 04/28/19 06:46 Blood Pressure 170/129 H 04/28/19 06:46 Pulse Oximetry 96 04/28/19 06:46 Const General: cooperative and well developed Resp Effort & Inspection: normal respiratory effort Cardio Rate: tachycardic GI Inspection: distended (Lower abdomen) Skin Lesions: no lesions Rashes: no rashes Neuro General: alert and awake Cognition: normal cognition Speech: speech normal Extrem General: normal to inspection and capillary refill normal Psych Appearance: grossly normal and well kempt Course Orders Ordered: ED Orders 04/28/19 07:15 Urine Culture Stat Vital Signs Vital signs: Vital Signs - 8 hr 04/28/19 06:46 Pulse Rate 105 H Respiratory Rate 16 Blood Pressure 170/129 H Pulse Oximetry 96 Medical Decision Making MDM Narrative Medical decision making narrative: Review of patient's record shows that the last urine culture was negative. He is currently on antibiotics. I do not feel that a repeat urinalysis today is warranted. I did culture the urine today. He does have establish care with a urologist. Will send home with a leg bag. We did get approximately 600 cc of urine from the Nieves. He was given return precautions and follow-up instructions. Expressed understanding and agreement with plan. Discharge Plan Departure Patient Disposition: Home Clinical Impression: Acute urinary retention Instructions: How to Care for Your Nieves Catheter -- Male, DI for Urinary Retention in Men Activity Restrictions/Additional Instructions: I recommend that you continue all of your medications as directed. I also recommend that today you contact the urology office again to let them know that you had another episode of urinary retention and have a Nieves catheter in place. Also contact her primary provider. Return to the emergency department for any new or worsening symptoms Prescriptions: New lidocaine 4 % cream 1 applictn TOP BID PRN (Reason: pain) Qty: 15 RF: 0 No Action sulfamethoxazole-trimethoprim [Bactrim DS] 800-160 mg tablet 1 tab PO BID Qty: 60 RF: 0 tamsulosin [Flomax] 0.4 mg capsule 0.4 mg PO DAILY Qty: 90 RF: 3 cholecalciferol (vitamin D3) [Vitamin D3] 2,000 UNIT capsule 3,000 iu Qty: 0 RF: 0 nitroglycerin [Nitrostat] 0.4 MG tablet, sublingual 0.4 mg Sublingual PRN PRNQty: 25 RF: 12 lisinopril 5 MG tablet 5 mg PO QDAY Qty: 0 RF: 0 metoprolol tartrate 50 mg tablet 50 mg PO BID Qty: 180 RF: 3 omeprazole 40 mg capsule,delayed release(DR/EC) 40 mg PO HS Qty: 90 RF: 3 warfarin [Coumadin] 5 mg tablet 5 mg PO SEE INSTRUCTIONS Qty: 100 RF: 3 (DME) Respironics RemStar CPAP Qty: 1 RF: 0 Referrals: Indra Beal MD [Primary Care Provider] -
--- NOTE | 2019-04-28 08:01 | PC.NURSE ---
instucrtions on leg bag, and changing to bedside bag given, pt very familiar since just had robles in for about 4 days. at bedside
== END 2019-04-28 08:03 | disposition home or self-care (01) ==
PROVIDERS: Emergency Provider Emergency Medicine; PCP Family Medicine
DX: R33.9 Retention of urine, unspecified (principal)
CPT/HCPCS: 51701; 51798; 87086; 99283

== ENCOUNTER 2019-05-18 20:41 | Emergency (ER) | payer MEDICARE, OTHER, SELFPAY ==
[2019-05-18 20:42] VITALS: BP 146/97; PULSE 92; RESP 20; TEMP 36.4; O2SAT 95
--- NOTE | 2019-05-18 20:51 | ED.MALEGU ---
HPI - Male Genitourinary General Chief complaint: Urogenital-Male Stated complaint: Time Seen by Provider: 05/18/19 20:42 Source: patient Mode of arrival: Ambulatory History of Present Illness HPI Narrative: 73-year-old male former smoker with history of atrial fibrillation and recent ablation on Coumadin presents with a chief complaint of inability to urinate and severe suprapubic tenderness over the course of the day. This is his 3rd episode urinary retention in the past few months. He denies any dizziness, weakness or lightheadedness. He denies any chest pain or shortness of breath. He has had no nausea, vomiting or diarrhea. He was just seen in the Urology office today and had his catheter pulled and had done well over the afternoon. Both cardiac and urologic care are received at [facility] Complaint: other Onset (ago): hour(s) Duration: constant Severity: mild Quality: aching Relieving factors: none Exacerbating factors: none Associated symptoms: Reports denies other symptoms Related Data Home Medications Medication Instructions Recorded Confirmed cholecalciferol (vitamin D3) 3,000 iu #0 03/02/16 04/16/19 [Vitamin D3] lisinopril 5 mg PO QDAY #0 04/18/16 04/16/19 Respironics RemStar CPAP #1 ea 08/01/18 04/16/19 Previous Rx's Medication Instructions Recorded nitroglycerin [Nitrostat] 0.4 mg SUBLINGUAL PRN PRN #25 tab 03/02/16 metoprolol tartrate 50 mg tablet 50 mg PO BID #180 tab 08/20/18 omeprazole 40 mg capsule,delayed 40 mg PO HS #90 cap 08/29/18 release warfarin 5 mg tablet 5 mg PO SEE INSTRUCTIONS #100 tab 10/28/18 sulfamethoxazole 800 1 tab PO BID #60 tab 04/16/19 mg-trimethoprim 160 mg tablet tamsulosin 0.4 mg capsule 0.4 mg PO DAILY #90 cap 04/16/19 lidocaine 1 applictn TOP BID PRN #15 gram 04/28/19 Allergies Allergy/AdvReac Type Severity Reaction Status Date / Time No Known Drug Allergies Allergy Verified 04/16/19 09:59 Review of Systems Constitutional Constitutional: Denies chills, Denies fatigue, Denies fever(s), Denies frequent falls, Denies lethargy and Denies weakness Eyes Eyes: Denies change in vision, Denies eye discharge, Denies irritation and Denies loss of vision ENT Ears, Nose, Mouth, and Throat: Denies change in voice, Denies dizziness, Denies neck pain, Denies sore throat and Denies throat swelling Cardiovascular Cardiovascular: Denies chest pain, Denies irregular heart rhythm, Denies lightheadedness, Denies palpitations, Denies dyspnea, Denies dyspnea on exertion and Denies orthopnea Respiratory Respiratory: Denies cough, Denies dyspnea, Denies dyspnea on exertion and Denies wheezing Gastrointestinal Gastrointestinal: Denies abdominal pain, Denies change in bowel habits, Denies diarrhea, Denies nausea and Denies vomiting Genitourinary Genitourinary: Denies hematuria, Denies flank pain, Denies urinary incontinence and Denies urinary urgency Comments: Urinary retention Musculoskeletal Musculoskeletal: Denies back pain, Denies muscle weakness, Denies neck pain, Denies numbness and Denies tingling Integumentary/Breasts Skin/Breast: Denies pruritus, Denies erythema, Denies rash and Denies wounds Neurologic Neurologic: Denies behavioral changes, Denies confusion, Denies dizziness, Denies frequent falls, Denies loss of vision, Denies numbness, Denies tingling and Denies weakness Psychiatric Psychiatric: Denies anxiety, Denies behavioral changes, Denies confusion, Denies depression, Denies homicidal ideation and Denies suicidal ideation Endocrine Endocrine: Denies fatigue, Denies flushing and Denies palpitations Hematologic/Lymphatic Hematologic/Lymphatic: Denies easy bruising Allergic/Immunologic Allergic/Immunologic: Denies urticaria, Denies throat swelling and Denies wheezing Patient History Medical History Atrial fibrillation (Chronic 10/2014) BCC (basal cell carcinoma of skin) (Resolved) BPH (benign prostatic hyperplasia) (Chronic) Chicken pox (Resolved 1951) GERD (gastroesophageal reflux disease) (Chronic ~1994) Herpes (Resolved 1976) Knee pain (Chronic 1995) Measles (Resolved ~1949) Mumps (Resolved ~1949) Obstructive sleep apnea of adult (Chronic) Snoring (Inactive) 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) Surgical History Anesthesia (Resolved) History of colonoscopy (Resolved 2004) History of esophagogastroduodenoscopy (EGD) (Resolved 11/11/12) History of esophagogastroduodenoscopy (EGD) (Resolved 10/20/10) History of left heart catheterization (Resolved 03/2016) History of right knee surgery (Resolved 06/26/07) History of squamous cell carcinoma excision (Resolved 08/14/17) History of total left knee replacement (TKR) (Resolved 04/23/16) Status post arthroscopy (Resolved ~1996) Status post arthroscopy (Resolved ~2002) Status post arthroscopy (04/23/16) Status post biopsy (10/20/10) Status post colonoscopy (Resolved) Status post Mohs surgery for basal cell carcinoma (Resolved 2004) Status post placement of cardiac pacemaker (Resolved 12/13/15) Status post surgical manipulation of knee joint (Resolved 07/26/16) Family History Father Cancer Lung cancer Grandfather Cancer Cancer of kidney Mother Atherosclerosis AAA (abdominal aortic aneurysm) Sister Age: 72 Obese Chronic knee pain Chronic foot pain Brother No problems noted. Grandmother Dementia Grandfather No problems noted. Grandmother Brain tumor Sister Fibromyalgia Other CAD (coronary artery disease) Hypertension Social History marital status: details: elvia Romeo, lives in [place] household members: spouse lives independently: Yes caregiver/support person: No housing: house Smoking Status: Former smoker Tobacco: How many years used: 8 alcohol intake: current substance use type: does not use alcohol intake frequency: 0-2 drinks per day Alcohol type: wine Substance Use Type: does not use Exam Narrative Exam Narrative: GENERAL: [73] year old patient appears stated age. Well-nourished, well-developed patient, in significant distress, obviously quite uncomfortable and rubbing his lower abdomen HEAD: Atraumatic. Normocephalic. EYES: Pupils equal round and reactive. Extraocular motions intact. No scleral icterus. No injection or drainage. ENT: Nose without bleeding, purulent drainage. Throat without erythema, tonsillar hypertrophy or exudate. Airway patent. NECK: Trachea midline. Non tender CARDIOVASCULAR: Regular rate and rhythm without murmurs, gallops, or rubs. RESPIRATORY: Clear to auscultation. Breath sounds equal bilaterally. No wheezes, rales, or rhonchi. GASTROINTESTINAL: Abdomen soft, non-tender, nondistended. EXTREMITIES: No edema or joint tenderness. BACK: Nontender without deformity or crepitance. No flank tenderness. NEURO: AOx3. SKIN: No rash or erythema of visible areas Initial Vital Signs Initial Vital Signs: Vital Signs Temperature 97.5 F L 05/18/19 20:42 Pulse Rate 92 H 05/18/19 20:42 Respiratory Rate 20 05/18/19 20:42 Blood Pressure 146/97 H 05/18/19 20:42 Pulse Oximetry 95 05/18/19 20:42 Course Course Course Narrative: Patient had near immediate improvement in symptoms after Nieves catheter easily placed. Patient has neymar blood in Nieves catheter and irrigation connected Patient has had 3 L of irrigation very little clearing of the urine. Patient continues to deny any ongoing pain. He denies any dizziness, weakness or lightheadedness and has no chest pain or shortness of breath. Orders Ordered: ED Orders 05/18/19 21:33 Hemoglobin and Hematocrit Stat Prothrombin Time INR Stat 05/18/19 23:25 Basic Metabolic Panel Stat Complete Blood Count AUTO DIFF Stat Type and Screen Stat Ceftriaxone Sodium/Dextrose (Rocephin) 1 gm in 50 mls @ 100 mls/hr IV NOW ONE Stop: 05/19/19 00:36 Last Admin: 05/19/19 00:23 Dose: 100 mls/hr Documented by: AARON Consultations Consultation #1: call to Dr. Kim ([facility]) whom is happy to care for patient and requests transfer to [facility], however upon calling they have no beds and are actually boarding patients in the ED. Consultation #2: call to Urology at [facility]. He is happy to care for patient, but requests discussion with medicine. He requests NPO status and a dose of Rocephin. Consultation #3: hospitalist at [facility] happy to accept. We discuss Vit K vs. other warfarin reversal techniques, and sure the opinion that this is not needed at this point time. Vital Signs Vital signs: Vital Signs - 8 hr 05/18/19 20:42 05/18/19 22:02 05/18/19 23:00 Temperature 97.5 F L Pulse Rate 92 H 95 H 74 Respiratory Rate 20 18 17 Blood Pressure 146/97 H Blood Pressure [Left Arm] 107/67 95/64 Pulse Oximetry 95 97 97 05/18/19 23:50 Temperature Pulse Rate Respiratory Rate Blood Pressure Blood Pressure [Left Arm] 100/65 Pulse Oximetry MDM - Male Genitourinary Lab Data Result diagrams: 05/18/19 23:25 05/18/19 23:25 Labs: Lab Results 05/18/19 05/18/19 05/18/19 Range/Units 21:33 21:33 23:25 WBC 12.6 H (4.5-11.0) X10^3/uL RBC 4.50 (4.5-5.9) X10^6/uL Hgb 13.1 L 12.9 L (13.5-17.5) g/dL Hct 38.9 L 38.8 L (41-53) % MCV 86.3 (80-100) fL MCH 28.8 (26-34) PG MCHC 33.3 (30-36) % RDW 14.6 (11.6-14.8) % Plt Count 163 (150-400) X10^3/uL Neut % (Auto) 88.5 H (50-75) % Lymph % (Auto) 4.2 L (25-40) % Sierra % (Auto) 6.9 (3-14) % Eos % (Auto) 0.1 L (2-4) % Baso % (Auto) 0.3 (0-2) % Neut # (Auto) 02297 H (2720-8393) /uL Lymph # (Auto) 500 L (4556-6875) /uL Sierra # (Auto) 900 (0-900) /uL Eos # (Auto) 0 (0-450) /uL Baso # (Auto) 0 (0-100) /uL PT 37.6 H (10.1-12.7) SECONDS INR 3.2 H (0.9-1.3) Sodium (137-145) mmol/L Potassium (3.4-5.1) mmol/L Chloride (98-107) mmol/L Carbon Dioxide (22-32) mmol/L BUN (9-20) mg/dL Creatinine (0.66-1.25) mg/dL Estimated GFR (>60) mL/min BUN/Creatinine Ratio (6-22) Glucose (80-110) mg/dL Calcium (8.4-10.2) mg/dL Blood Type Antibody Screen 05/18/19 05/18/19 Range/Units 23:25 23:25 WBC (4.5-11.0) X10^3/uL RBC (4.5-5.9) X10^6/uL Hgb (13.5-17.5) g/dL Hct (41-53) % MCV (80-100) fL MCH (26-34) PG MCHC (30-36) % RDW (11.6-14.8) % Plt Count (150-400) X10^3/uL Neut % (Auto) (50-75) % Lymph % (Auto) (25-40) % Sierra % (Auto) (3-14) % Eos % (Auto) (2-4) % Baso % (Auto) (0-2) % Neut # (Auto) (4976-1283) /uL Lymph # (Auto) (1522-1837) /uL Sierra # (Auto) (0-900) /uL Eos # (Auto) (0-450) /uL Baso # (Auto) (0-100) /uL PT (10.1-12.7) SECONDS INR (0.9-1.3) Sodium 133 L (137-145) mmol/L Potassium 4.5 (3.4-5.1) mmol/L Chloride 102 (98-107) mmol/L Carbon Dioxide 23 (22-32) mmol/L BUN 30 H (9-20) mg/dL Creatinine 1.40 H (0.66-1.25) mg/dL Estimated GFR 49.5 L (>60) mL/min BUN/Creatinine Ratio 21.4 (6-22) Glucose 146 H (80-110) mg/dL Calcium 9.5 (8.4-10.2) mg/dL Blood Type O Positive Antibody Screen Negative Critical Care Time Critical Care Time Critical Care Time: Yes Total Critical Care Time: 30 Attestation: The high probability of a clinically significant, sudden or life threatening deterioration of the [CV] system(s) required my full and direct attention, intervention and personal management. The aggregate critical care time was [30] minutes. This time is in addition to time spent performing reported procedures but includes the following: [x] Data Review and interpretation [x] Patient assessment and monitoring of vital signs [x] Documentation [x] Medication orders and management Discharge Plan Departure Patient Disposition: [facility] Clinical Impression: Gross hematuria, Supratherapeutic INR Prescriptions: No Action sulfamethoxazole-trimethoprim [Bactrim DS] 800-160 mg tablet 1 tab PO BID Qty: 60 RF: 0 tamsulosin [Flomax] 0.4 mg capsule 0.4 mg PO DAILY Qty: 90 RF: 3 cholecalciferol (vitamin D3) [Vitamin D3] 2,000 UNIT capsule 3,000 iu Qty: 0 RF: 0 nitroglycerin [Nitrostat] 0.4 MG tablet, sublingual 0.4 mg Sublingual PRN PRNQty: 25 RF: 12 lisinopril 5 MG tablet 5 mg PO QDAY Qty: 0 RF: 0 metoprolol tartrate 50 mg tablet 50 mg PO BID Qty: 180 RF: 3 omeprazole 40 mg capsule,delayed release(DR/EC) 40 mg PO HS Qty: 90 RF: 3 warfarin [Coumadin] 5 mg tablet 5 mg PO SEE INSTRUCTIONS Qty: 100 RF: 3 lidocaine 4 % cream 1 applictn TOP BID PRN (Reason: pain) Qty: 15 RF: 0 (DME) Respironics RemStar CPAP Qty: 1 RF: 0 Referrals: Indra Beal MD [Primary Care Provider] -
[2019-05-18 21:40] LABS: Hematocrit 38.9 % (41-53); Hemoglobin 13.1 g/dL (13.5-17.5)
[2019-05-18 21:46] LABS: INR 3.2 (0.9-1.3); Prothrombin Time 37.6 SECONDS (10.1-12.7)
--- NOTE | 2019-05-18 21:50 | PC.NURSE ---
3 way catheter flushed w/ continous bladder irrigation w/o effect. Piston irrigation until multiple large clots were removed and robles started to flow freely. Continuous bladder irrigation started w/ good effect. At this time output is still dark red but is w/o clots.
[2019-05-18 22:02] VITALS: BP 107/67; PULSE 95; RESP 18; O2SAT 97
--- NOTE | 2019-05-18 22:03 | PC.NURSE ---
Pt on coumadin, had robles that was in for two weeks removed today. Now w/ large blood clots, hematuria and unable to empty bladder.
[2019-05-18 23:00] VITALS: BP 95/64; PULSE 74; RESP 17; O2SAT 97
--- NOTE | 2019-05-18 23:00 | PC.NURSE ---
Provider aware of BP, ordered type and screen.
--- NOTE | 2019-05-18 23:02 | PC.NURSE ---
first bag infused for bladder irrigation, second started, clots present with red fluid return.
[2019-05-18 23:40] LABS: Add Manual Diff / Slide Review NO; Basophils Absolute Auto 0 /uL (0-100); Basophils Percent Auto 0.3 % (0-2); Eosinophils Absolute Auto 0 /uL (0-450); Eosinophils Percent Auto 0.1 % (2-4); Hematocrit 38.8 % (41-53); Hemoglobin 12.9 g/dL (13.5-17.5); Lymphocytes Absolute Auto 500 /uL (1100-4500); Lymphocytes Percent Auto 4.2 % (25-40); Mean Corpuscular HGB Conc 33.3 % (30-36); Mean Corpuscular Hemoglobin 28.8 PG (26-34); Mean Corpuscular Volume 86.3 fL (80-100); Monocytes Absolute Auto 900 /uL (0-900); Monocytes Percent Auto 6.9 % (3-14); Neutrophils Absolute Auto 11200 /uL (1500-7000); Neutrophils Percent Auto 88.5 % (50-75); Platelet Count 163 X10^3/uL (150-400); Red Cell Distribution Width 14.6 % (11.6-14.8); White Blood Cell Count 12.6 X10^3/uL (4.5-11.0)
[2019-05-18 23:48] LABS: BUN Creatinine Ratio 21.4 (6-22); Blood Urea Nitrogen 30 mg/dL (9-20); Calcium 9.5 mg/dL (8.4-10.2); Carbon Dioxide 23 mmol/L (22-32); Chloride 102 mmol/L (98-107); Estimated Glomerular Filt Rate 49.5 mL/min (>60); Glucose 146 mg/dL (80-110); HEMOLYSIS < 15 (0-50); Potassium 4.5 mmol/L (3.4-5.1); Sodium 133 mmol/L (137-145)
[2019-05-18 23:50] VITALS: BP 100/65
[2019-05-19] MEDS: CEFTRIAXONE 1 GM/50 ML FROZ.PIGGY IV (00:23)
[2019-05-19 01:16] VITALS: BP 96/69; PULSE 72; RESP 14; O2SAT 99
== END 2019-05-19 01:31 | disposition short-term general hospital (02) ==
PROVIDERS: Emergency Provider Emergency Medicine; PCP Family Medicine
DX: R31.0 Gross hematuria (principal); R79.1 Abnormal coagulation profile; Z79.01 Long term (current) use of anticoagulants
CPT/HCPCS: 36415; 51700; 51701; 80048; 85014; 85018; 85025; 85610; 86850; 86900; 86901; 96365; 99283; 99291

== ENCOUNTER → 2019-06-01 10:51 | Outpatient (CLI) | payer MEDICARE, OTHER, SELFPAY ==
--- NOTE | 2019-06-01 10:55 | DI.RAD.S_ITS ---
PROCEDURE: XR CHEST 2V INDICATIONS: cough short of breath TECHNIQUE: 2 views of the chest were acquired. COMPARISON: [facility], CT, CT ANGIO CHEST, 01/09/2019, 17:36. [facility], CR, CHEST 1 VIEW, 04/29/2016, 22:09. [facility], CR, CHEST 2 VIEW, 11/12/2014, 16:26. FINDINGS: Surgical changes and devices: Dual-chamber cardiac pacing device and leads in normal position. Lungs and pleura: Lungs are clear. No pleural effusions or pneumothorax. A fusiform thickening of the left posterolateral pleural surface is again seen, also seen on prior CT scanning and plain film imaging over the past. Mediastinum: Mediastinal contours are normal. Heart size is normal. Bones and chest wall: No suspicious bony abnormalities. Soft tissues appear unremarkable. IMPRESSION: Pacemaker and leads in normal position. Source of shortness of breath is not seen. Stable benign-appearing fusiform left pleural thickening is located lateral to the pacemaker control device and has been present over an extended period of time. Dictated by: Luis Freitas M.D. on 06/01/2019 at 11:42 Approved by: Luis Freitas M.D. on 06/01/2019 at 11:44
[2019-06-01 11:57] LABS: Add Manual Diff / Slide Review NO; Basophils Absolute Auto 0 /uL (0-100); Basophils Percent Auto 0.3 % (0-2); Eosinophils Absolute Auto 0 /uL (0-450); Eosinophils Percent Auto 0.1 % (2-4); Hematocrit 29.8 % (41-53); Lymphocytes Absolute Auto 300 /uL (1100-4500); Lymphocytes Percent Auto 3.3 % (25-40); Mean Corpuscular HGB Conc 33.5 % (30-36); Mean Corpuscular Hemoglobin 29.6 PG (26-34); Mean Corpuscular Volume 88.2 fL (80-100); Monocytes Absolute Auto 300 /uL (0-900); Monocytes Percent Auto 3.9 % (3-14); Neutrophils Absolute Auto 8000 /uL (1500-7000); Neutrophils Percent Auto 92.4 % (50-75); Platelet Count 259 X10^3/uL (150-400); Red Blood Cell Count 3.37 X10^6/uL (4.5-5.9); Red Cell Distribution Width 15.2 % (11.6-14.8); White Blood Cell Count 8.7 X10^3/uL (4.5-11.0)
[2019-06-01 12:10] LABS: B Type Natriuretic Peptide 152 (<100)
[2019-06-01 12:12] LABS: Alanine Aminotransferase 24 IU/L (<50); Albumin 3.8 g/dL (3.5-5.0); Albumin Globulin Ratio 1.4 (1.0-2.8); Alkaline Phosphatase 82 U/L (38-126); Aspartate Aminotransferase 16 IU/L (17-59); Bilirubin Total 1.2 mg/dL (0.2-1.3); Blood Urea Nitrogen 16 mg/dL (9-20); Calcium 8.5 mg/dL (8.4-10.2); Carbon Dioxide 25 mmol/L (22-32); Chloride 105 mmol/L (98-107); Estimated Glomerular Filt Rate > 60.0 mL/min (>60); Globulin 2.8 g/dL (1.7-4.1); Glucose 118 mg/dL (80-110); HEMOLYSIS < 15 (0-50); Potassium 4.1 mmol/L (3.4-5.1); Sodium 139 mmol/L (137-145); Total Protein 6.6 g/dL (6.3-8.2)
== END ==
PROVIDERS: PCP Family Medicine; Visit Provider Family Medicine
DX: N39.0 Urinary tract infection, site not specified (principal); R50.9 Fever, unspecified; R06.02 Shortness of breath; I48.0 Paroxysmal atrial fibrillation; I25.84 Coronary atherosclerosis due to calcified coronary lesion; Z95.0 Presence of cardiac pacemaker
CPT/HCPCS: 36415; 71046; 80053; 83880; 85025; 87077; 87086; 87186

== ENCOUNTER → 2019-06-11 09:42 | Outpatient (CLI) | payer MEDICARE, OTHER, SELFPAY ==
[2019-06-11 10:25] LABS: Hematocrit 30.8 % (41-53); Hemoglobin 10.4 g/dL (13.5-17.5)
== END ==
PROVIDERS: PCP Family Medicine; Visit Provider Family Medicine
DX: N40.0 Benign prostatic hyperplasia without lower urinary tract symptoms (principal); N41.9 Inflammatory disease of prostate, unspecified; Z79.01 Long term (current) use of anticoagulants
CPT/HCPCS: 36415; 85014; 85018

== ENCOUNTER → 2019-06-18 11:32 | Outpatient (CLI) | payer MEDICARE, OTHER, SELFPAY ==
[2019-06-18 12:05] LABS: Appearance Urine UA CLOUDY; Bilirubin Urine UA NEGATIVE (NEGATIVE); Color Urine UA YELLOW; Glucose Urine UA NEGATIVE (Negative); Ketones Urine UA NEGATIVE (NEGATIVE); Leukocyte Esterase Urine UA 2+ (NEGATIVE); Nitrite Urine UA NEGATIVE (Negative); Occult Blood Urine UA 3+ (Negative); Protein Urine UA 2+ (Negative); Urobilinogen Urine UA 0.2 E.U./dL (0.2); pH Urine UA 6.5 (4.5-8.0)
[2019-06-18 12:14] LABS: RBC Urine >100/HPF (0-5/HPF); WBC Urine 30-100/HPF (0-5/HPF)
[2019-06-18 12:15] LABS: Bacteria Urine Moderate (10-30); Culture Indicated Urine Specimen Cultured
== END ==
PROVIDERS: PCP Family Medicine; Visit Provider Family Medicine
DX: R30.0 Dysuria (principal); R35.0 Frequency of micturition; R82.90 Unspecified abnormal findings in urine
CPT/HCPCS: 81001; 87077; 87086; 87185; 87186

== ENCOUNTER → 2019-06-25 17:02 | Outpatient (CLI) | payer MEDICARE, OTHER, SELFPAY ==
[2019-06-25 17:32] LABS: Appearance Urine UA CLOUDY; Bilirubin Urine UA NEGATIVE (NEGATIVE); Color Urine UA YELLOW; Glucose Urine UA NEGATIVE (Negative); Ketones Urine UA TRACE (NEGATIVE); Leukocyte Esterase Urine UA 2+ (NEGATIVE); Nitrite Urine UA NEGATIVE (Negative); Occult Blood Urine UA 3+ (Negative); Protein Urine UA 2+ (Negative); Specific Gravity Urine UA 1.025 (1.000-1.035); Urobilinogen Urine UA 0.2 E.U./dL (0.2)
[2019-06-25 17:40] LABS: Amorphous Sediment Urine 1+; Bacteria Urine Few (2-10); Culture Indicated Urine Specimen Cultured; Mucus Urine 1+ (Negative); RBC Urine 5-10/HPF (0-5/HPF); Squamous Epithelial Cell Urine 0-1 /HPF (0-5/HPF); WBC Urine 30-100/HPF (0-5/HPF)
== END ==
PROVIDERS: PCP Family Medicine; Visit Provider Urology
DX: N39.0 Urinary tract infection, site not specified (principal)
CPT/HCPCS: 81001; 87077; 87086; 87185; 87186

== ENCOUNTER → 2019-06-29 12:23 | Outpatient (CLI) | payer MEDICARE, OTHER, SELFPAY ==
[2019-06-29 13:07] LABS: Influenza A - CEPHEID Flu A NEGATIVE (NEGATIVE); Influenza B - CEPHEID Flu B NEGATIVE (NEGATIVE)
== END ==
PROVIDERS: PCP Family Medicine; Visit Provider Physician Assistant
DX: R68.89 Other general symptoms and signs (principal)
CPT/HCPCS: 87502

== ENCOUNTER → 2019-06-29 13:26 | Outpatient (CLI) | payer MEDICARE, OTHER, SELFPAY ==
--- NOTE | 2019-06-29 13:29 | DI.RAD.S_ITS ---
PROCEDURE: XR CHEST 2V INDICATIONS: r/o pneumonia or bronchitis TECHNIQUE: 2 views of the chest were acquired. COMPARISON: [facility], CR, XR CHEST 2V, 06/01/2019, 11:10. FINDINGS: Surgical changes and devices: A left-sided cardiac pacer/defibrillator is identified. Lungs and pleura: No focal pulmonary consolidation is appreciated. However, there may be minimal scarring versus atelectasis of the left costophrenic angle. No pleural effusions or pneumothorax. Mediastinum: Mediastinal contours are normal. Heart size is normal. Bones and chest wall: No suspicious bony abnormalities. Degenerative changes of the shoulders and spine are not well characterized. Soft tissues appear unremarkable. IMPRESSION: Stable chest. No acute cardiopulmonary process is evident. Dictated by: Ridge Burkett M.D. on 06/29/2019 at 13:23 Approved by: Ridge Burkett M.D. on 06/29/2019 at 13:26
== END ==
PROVIDERS: PCP Family Medicine; Visit Provider Physician Assistant
DX: J06.9 Acute upper respiratory infection, unspecified (principal); R05 Cough; R68.89 Other general symptoms and signs
CPT/HCPCS: 71046; 87502

== ENCOUNTER → 2019-07-02 08:46 | Outpatient (CLI) | payer MEDICARE, OTHER, SELFPAY ==
[2019-07-02 09:26] LABS: Hematocrit 36.2 % (41-53); Hemoglobin 11.7 g/dL (13.5-17.5)
[2019-07-02 09:43] LABS: INR 1.2 (0.9-1.3); Prothrombin Time 14.2 SECONDS (10.1-12.7)
== END ==
PROVIDERS: PCP Family Medicine; Visit Provider Family Medicine
DX: I48.91 Unspecified atrial fibrillation (principal); D64.9 Anemia, unspecified
CPT/HCPCS: 36415; 85014; 85018; 85610

== ENCOUNTER → 2019-08-28 13:28 | Outpatient (CLI) | payer MEDICARE, OTHER, SELFPAY ==
[2019-08-28 15:20] LABS: BUN Creatinine Ratio 27.5 (6-22); Blood Urea Nitrogen 22 mg/dL (9-20); Calcium 9.8 mg/dL (8.4-10.2); Carbon Dioxide 26 mmol/L (22-32); Chloride 105 mmol/L (98-107); Estimated Glomerular Filt Rate > 60.0 mL/min (>60); Glucose 102 mg/dL (80-110); HEMOLYSIS < 15 (0-50); Magnesium 2.2 mg/dL (1.6-2.3); Potassium 4.6 mmol/L (3.4-5.1); Sodium 141 mmol/L (137-145)
== END ==
PROVIDERS: PCP Family Medicine; Referring Provider Physician Assistant Medical; Visit Provider Physician Assistant Medical
DX: I48.19 Other persistent atrial fibrillation (principal); D64.9 Anemia, unspecified
CPT/HCPCS: 36415; 80048; 83735; 85014

== ENCOUNTER → 2020-04-30 13:25 | Outpatient (CLI) | payer MEDICARE, OTHER, SELFPAY ==
[2020-05-02 02:24] LABS: COVID19 Sendout Not Detected (Not Detect)
== END ==
PROVIDERS: PCP Family Medicine; Visit Provider Nurse Practitioner
DX: Z11.59 Encounter for screening for other viral diseases (principal)
CPT/HCPCS: 87635

== ENCOUNTER 2020-05-03 06:47 | Day surgery (SDC) | payer MEDICARE, OTHER, SELFPAY ==
--- NOTE | 2020-05-03 | PATH_ITS ---
[facility] Accession Number: [id number] . 01 Material submitted: . PART A: colon - ASCENDING COLON POLPYS PART B: colon - POLYP (S) 110 CM PART C: colon - POLYP (S) @ 70 CM PART D: colon - POLYP @ 35 CM PART E: colon - POLYP @ 20 CM . 01 Clinical history: . SDC . 02 Diagnosis: A. Ascending Colon, Polyps, Biopsies: Tubular adenoma in two of four fragments. . B. Colon, Polyps 110 cm, Biopsy: Tubular adenoma, two fragments. . C. Polyps 70 cm, Biopsy: Tubular adenoma in one of three fragments. Serrated lesion, favor hyperplastic polyp in one fragment. . D. Polyp at 35 cm, Biopsy: Tubular adenoma. . E. Polyp at 20 cm, Biopsy: Tubular adenoma. Hyperplastic polyp. [facility] 05/05/2020 1256 Local . 02 Electronically signed: . Carlie Kinsey MD, Pathologist NPI- [id number] . 01 Gross description: . Part A: ASCENDING COLON POLPYS: Received in formalin are 4 fragment(s) of caicedo, soft tissue measuring 0.1 x 0.1 x 0.1 cm to 0.3 x 0.3 x 0.2 cm submitted entirely in 1 cassette(s) Part B: POLYP (S) 110 CM: Received in formalin are 2 fragment(s) of caicedo, soft tissue measuring 0.1 x 0.1 x 0.1 cm to 0.6 x 0.4 x 0.4 cm submitted entirely in 1 cassette(s) Part C: POLYP (S) @ 70 CM: Received in formalin are 3 fragment(s) of caicedo, soft tissue measuring 0.3 x 0.3 x 0.3 cm to 0.6 x 0.6 x 0.6 cm submitted entirely in 1 cassette(s) Part D: POLYP @ 35 CM: Received in formalin is 1 fragment(s) of caicedo, soft tissue measuring 0.5 x 0.4 x 0.4 cm submitted entirely in 1 cassette(s) Part E: POLYP @ 20 CM: Received in formalin are 2 fragment(s) of caicedo, soft tissue measuring 0.2 x 0.1 x 0.1 cm to 0.6 x 0.5 x 0.4 cm submitted entirely in 1 cassette(s) /CECE 05/04/2020 0141 Local . 02 Pathologist provided ICD-10: D12.2, D12.6 . 02 CPT . 131847, 899021, 389275, [id number], 480444 Performed at: 01 [facility] [address] [id number] MD Bhavik Gimenez MD Phone: [phone] Performed at: 02 [facility] [address] [address] [place], [place] [id number] MD Carlie Kinsey MD Phone: [phone]
[2020-05-03] MEDS: LACTATED RINGERS 1,000 ML 200 ML IV (07:30)
[2020-05-03 07:32] VITALS: BP 158/93; PULSE 64; RESP 16; TEMP 37.4; O2SAT 95; BMI 29.7
--- NOTE | 2020-05-03 07:57 | PM.HP.1 ---
History of Present Illness History of Present Illness Date Patient Seen: 05/03/20 Time Patient Seen: 07:44 Chief complaint: SDC Narrative: The patient is here for screening colonoscopy. Last exam was about 10 years ago. 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) Surgical History Anesthesia (Resolved) History of colonoscopy (Resolved 2004) History of esophagogastroduodenoscopy (EGD) (Resolved 11/11/12) History of esophagogastroduodenoscopy (EGD) (Resolved 10/20/10) History of left heart catheterization (Resolved 03/2016) History of right knee surgery (Resolved 06/26/07) History of squamous cell carcinoma excision (Resolved 08/14/17) History of total left knee replacement (TKR) (Resolved 04/23/16) Status post arthroscopy (Resolved ~1996) Status post arthroscopy (Resolved ~2002) Status post arthroscopy (04/23/16) Status post biopsy (10/20/10) Status post colonoscopy (Resolved) Status post Mohs surgery for basal cell carcinoma (Resolved 2004) Status post placement of cardiac pacemaker (Resolved 12/13/15) Status post surgical manipulation of knee joint (Resolved 07/26/16) Family & Social History Family History Father Cancer Lung cancer Grandfather Cancer Cancer of kidney Mother Atherosclerosis AAA (abdominal aortic aneurysm) Sister Age: 73 Obese Chronic knee pain Chronic foot pain Brother No problems noted. Grandmother Dementia Grandfather No problems noted. Grandmother Brain tumor Sister Fibromyalgia Other CAD (coronary artery disease) Hypertension Social History: household members spouse lives independently Yes caregiver/support person No Tobacco & Substance use: Smoking Status Former smoker alcohol intake current alcohol intake frequency 0-2 drinks per day Substance Use Type marijuana Meds Home Medications and Allergies Home Medications Medication Instructions Recorded Confirmed Type cholecalciferol (vitamin D3) 3,000 iu #0 03/02/16 03/28/20 History [Vitamin D3] nitroglycerin [Nitrostat] 0.4 mg SUBLINGUAL PRN PRN #25 tab 03/02/16 05/03/20 Rx Respironics RemStar CPAP #1 ea 08/01/18 03/28/20 History finasteride 5 mg tablet 5 mg PO DAILY #90 tab 06/11/19 05/03/20 Rx omeprazole 40 mg capsule,delayed 40 mg PO HS #90 cap 09/09/19 05/03/20 Rx release sotalol 80 mg tablet 120 mg PO BID tab 01/08/20 05/03/20 History apixaban 5 mg tablet 5 mg PO BID #60 tab 03/28/20 05/03/20 Rx lisinopril 5 mg tablet 10 mg PO QDAY #90 tab 04/29/20 05/03/20 Rx fluorouracil 1 applic TOPICAL BID 05/03/20 05/03/20 History Allergies Allergy/AdvReac Type Severity Reaction Status Date / Time No Known Drug Allergies Allergy Verified 05/03/20 07:14 Review of Systems Review of Systems Narrative: Patient has a pacemaker in is in atrial fibrillation. He is anticoagulated. Bruises easily. Has extensive skin cancers and recently had a treatment for them. No cough or cold. No chest pain. No black or bloody bowel movements. Exam Vital Signs (past 8 hours): - 05/03/20 07:32 Temperature 99.3 F Pulse Rate 64 Respiratory Rate 16 Blood Pressure 158/93 H Pulse Oximetry 95 Oxygen Delivery Method Room Air Narrative Exam Narrative: Pleasant cooperative patient no apparent distress. Lungs are clear to auscultation. No rales or rhonchi. Heart irregular rate and rhythm no murmur gallop. Abdomen is soft, protuberant, nontender without mass. No obvious hernias. Patient is alert and oriented x3. Assessment & Plan Assessment & Plan narrative: The patient for a screening colonoscopy. I have discussed the procedure with them. Risks of bleeding, perforation which would necessitate major operation, failure to find remove all lesions, the potential tattoo were all discussed. All questions were answered. They wished to proceed.
--- NOTE | 2020-05-03 08:01 | PM.PREOP ---
Pre-operative Note COVID-19 COVID-19 status: Negative Result date/Date tested (Pos, Neg/Pending): 04/30/20 Interval Note History & Physical reviewed/Exam performed by Physician: Yes Changes to H&P: No ASA Class (for procedural sedation): III
[2020-05-03] MEDS: fentaNYL 250 MCG/5 ML INJ IV (08:05)
[2020-05-03] MEDS: MIDAZOLAM 5 MG/5 ML VIAL IV (08:07)
[2020-05-03 08:57] VITALS: BP 144/87; PULSE 64; RESP 14; TEMP 36.8; O2SAT 97
--- NOTE | 2020-05-03 08:59 | P.OP.ENDO_ITS ---
Operative Date/Time/Diagnoses Date of procedure: 05/03/20 Time of procedure: 08:59 Pre-op diagnosis: Screening exam. Last colonoscopy about 10 years ago. Post-op diagnosis: same (Numerous polyps. breaux colonic diverticulosis .) Procedure & Clinicians Study performed: Colonoscopy with cold biopsy and hot snare polypectomy Same procedure as scheduled: Yes Indications: Screening Surgeon: Clint William Procedure Notes SCOAP/Timeout: Perform Procedure in detail: The patient was placed in the left lateral decubitus position and underwent IV sedation directed by the surgeon consisting of fentanyl and Versed. Digital exam was unremarkable. The scope was inserted and advanced through the rectum into the sigmoid, descending, transverse, and ascending colon. Patient was noted to have diverticulosis. The cecum was re ached identified by the ileocecal valve. The scope was gradually brought out. Multiple Polyps were found. These we either cold biopsied her hot snared. Two small lesions were seen and removed in the ascending colon. There were polyps at 110 cm, 60-70 cm(3 of them), 35 cm and 20 cm from the anal verge. All appeared to be completely removed or destroyed. There were several small rectal lesions which I chose to cauterize due to their diminutive size. The scope ultimately was retroflexed in the rectum. The appearance was normal. The scope was removed and the patient tolerated the procedure well. The prep was very good. Scope withdrawal time: Total of 31 minutes Sedation minutes: 45 Findings: diverticulosis and polyp Specimen(s): other (Polyps) Complications: none Post-procedure Recommendations: Colonscopy in 5 years Follow up: as needed Disposition: PACU
[2020-05-03 09:02] VITALS: BP 148/81; PULSE 64; RESP 15; O2SAT 95
[2020-05-03 09:07] VITALS: BP 134/80; PULSE 59; RESP 11; O2SAT 94
[2020-05-03 09:21] VITALS: BP 127/70; PULSE 64; RESP 16; TEMP 36.7; O2SAT 95
[2020-05-03 09:33] VITALS: BP 136/81; PULSE 66; RESP 18; TEMP 37.2; O2SAT 96
== END 2020-05-03 09:45 | disposition home or self-care (01) ==
PROVIDERS: PCP Family Medicine; Referring Provider Family Medicine; Visit Provider Specialist
PROC: 0DJD8ZZ Inspection of Lower Intestinal Tract, Via Natural or Artificial Opening Endoscopic (ICD-10-PCS; CPT 45378; principal; 2020-05-03 07:45)
DX: Z12.11 Encounter for screening for malignant neoplasm of colon (principal); K57.30 Diverticulosis of large intestine without perforation or abscess without bleeding; Z95.0 Presence of cardiac pacemaker; Z79.01 Long term (current) use of anticoagulants; D12.2 Benign neoplasm of ascending colon; D12.6 Benign neoplasm of colon, unspecified
CPT/HCPCS: 45385; 45380; 99152; 99153; J2250; J3010

== ENCOUNTER → 2020-05-31 07:46 | Outpatient (CLI) | payer MEDICARE, OTHER, SELFPAY ==
[2020-05-31 08:55] LABS: Add Manual Diff / Slide Review NO; Basophils Absolute Auto 0 /uL (0-100); Eosinophils Absolute Auto 100 /uL (0-450); Eosinophils Percent Auto 1.9 % (2-4); Hematocrit 42.3 % (41-53); Lymphocytes Absolute Auto 800 /uL (1100-4500); Lymphocytes Percent Auto 17.7 % (25-40); Mean Corpuscular HGB Conc 33.1 % (30-36); Mean Corpuscular Hemoglobin 27.9 PG (26-34); Mean Corpuscular Volume 84.3 fL (80-100); Monocytes Absolute Auto 600 /uL (0-900); Monocytes Percent Auto 12.9 % (3-14); Neutrophils Absolute Auto 3000 /uL (1500-7000); Neutrophils Percent Auto 66.5 % (50-75); Platelet Count 171 X10^3/uL (150-400); Red Blood Cell Count 5.02 X10^6/uL (4.5-5.9); Red Cell Distribution Width 14.8 % (11.6-14.8); White Blood Cell Count 4.5 X10^3/uL (4.5-11.0)
[2020-05-31 09:25] LABS: Alanine Aminotransferase 19 IU/L (<50); Albumin 4.1 g/dL (3.5-5.0); Albumin Globulin Ratio 1.2 (1.0-2.8); Alkaline Phosphatase 77 U/L (38-126); Aspartate Aminotransferase 23 IU/L (17-59); BUN Creatinine Ratio 23.8 (6-22); Bilirubin Total 0.8 mg/dL (0.2-1.3); Blood Urea Nitrogen 19 mg/dL (9-20); Calcium 9.4 mg/dL (8.4-10.2); Carbon Dioxide 29 mmol/L (22-32); Chloride 105 mmol/L (98-107); Cholesterol 157 mg/dL (140-199); Estimated Glomerular Filt Rate > 60.0 mL/min (>60); Globulin 3.3 g/dL (1.7-4.1); Glucose 114 mg/dL (80-110); HDL Cholesterol 39 mg/dL (40-60); HEMOLYSIS < 15 (0-50); LDL Cholesterol Calculated 101 mg/dL (<100); Potassium 4.4 mmol/L (3.4-5.1); Sodium 139 mmol/L (137-145); Total Protein 7.4 g/dL (6.3-8.2); Triglycerides 83 mg/dL (35-150)
[2020-05-31 09:49] LABS: TSH w/ Reflex to FT4 3.35 uIU/mL (0.47-4.68)
== END ==
PROVIDERS: PCP Family Medicine; Referring Provider Family Medicine; Visit Provider Family Medicine
DX: I10 Essential (primary) hypertension (principal); I25.10 Atherosclerotic heart disease of native coronary artery without angina pectoris; J44.9 Chronic obstructive pulmonary disease, unspecified
CPT/HCPCS: 36415; 80053; 80061; 84443; 85025

== ENCOUNTER → 2020-10-26 12:43 | Outpatient (CLI) | payer MEDICARE, OTHER, SELFPAY ==
[2020-10-26 12:48] LABS: Bacteria Urine None Seen
[2020-10-26 13:23] LABS: Bilirubin Urine UA NEGATIVE (NEGATIVE); Color Urine UA RED; Glucose Urine UA NEGATIVE (Negative); Ketones Urine UA NEGATIVE (NEGATIVE); Leukocyte Esterase Urine UA TRACE (NEGATIVE); Nitrite Urine UA NEGATIVE (Negative); Occult Blood Urine UA 3+ (Negative); Protein Urine UA 1+ (Negative); Specific Gravity Urine UA 1.015 (1.000-1.035); pH Urine UA 6.5 (4.5-8.0)
[2020-10-26 13:24] LABS: Appearance Urine UA CLOUDY
[2020-10-26 13:37] LABS: Amorphous Sediment Urine 1+; Culture Indicated Urine Specimen Cultured; RBC Urine >100/HPF (0-5/HPF); Squamous Epithelial Cell Urine 0-1 /HPF (0-5/HPF); WBC Urine 1-5/HPF (0-5/HPF)
== END ==
PROVIDERS: PCP Family Medicine; Referring Provider Family Medicine; Visit Provider Family Medicine
DX: R35.0 Frequency of micturition (principal); R82.998 Other abnormal findings in urine
CPT/HCPCS: 81001; 87086

== ENCOUNTER → 2020-11-03 11:53 | Outpatient (CLI) | payer MEDICARE, OTHER, SELFPAY ==
--- NOTE | 2020-11-03 11:54 | DI.US.S_ITS ---
PROCEDURE: US RENAL COMPLETE INDICATIONS: cyst on kidney with hematura TECHNIQUE: Real-time scanning was performed of the kidneys and bladder, with image documentation. COMPARISON: [facility], CT, CT ABDOMEN WO/W CON, 05/21/2018, 7:55. FINDINGS: Kidneys: Kidneys are normal in size. Right kidney measures 11.3 cm long; left kidney measures 13 cm long. Right renal cortical thickness is 1.8 cm; left renal cortical thickness is 1.6 cm. Renal cortical echotexture is normal. No hydronephrosis or nephrolithiasis. No suspicious solid mass lesions. There are 2 right renal cysts, largest measuring up to 13 x 14 mm. Bladder: Pre-void bladder volume is 134 mL. Post-void residual is 41 mL. Pre-void images demonstrate no intraluminal masses or stones. On pre-void images, right ureteral jets are noted with color Doppler interrogation. (Of note, ureteral jets may not be detectable in up to 25% of cases due to insufficient differences in specific gravity between ureteral and bladder urine). Miscellaneous: No free pelvic fluid. IMPRESSION: Multiple right renal cysts, largest measuring up to 14 mm similar to prior examination. Dictated by: Breezy Gibson RRA Interpreted: Belkys Estrella MD on 11/03/2020 at 17:17 Transcribed by: ISIDORO on 11/03/2020 at 17:19 Approved by: Belkys Estrella MD, PhD on 11/03/2020 at 18:55
== END ==
PROVIDERS: PCP Family Medicine; Referring Provider Family Medicine; Visit Provider Family Medicine
DX: N28.1 Cyst of kidney, acquired (principal); R31.9 Hematuria, unspecified
CPT/HCPCS: 76770

== ENCOUNTER → 2020-11-14 16:48 | Outpatient (CLI) | payer MEDICARE, OTHER, SELFPAY ==
[2020-11-14 16:52] LABS: Bacteria Urine None Seen
[2020-11-14 18:44] LABS: Appearance Urine UA CLEAR; Bilirubin Urine UA NEGATIVE (NEGATIVE); Color Urine UA YELLOW; Glucose Urine UA NEGATIVE (Negative); Ketones Urine UA NEGATIVE (NEGATIVE); Leukocyte Esterase Urine UA NEGATIVE (NEGATIVE); Nitrite Urine UA NEGATIVE (Negative); Occult Blood Urine UA 1+ (Negative); Protein Urine UA NEGATIVE (Negative); Specific Gravity Urine UA 1.025 (1.000-1.035); pH Urine UA 6.5 (4.5-8.0)
[2020-11-14 19:05] LABS: Culture Indicated Urine Cult Not Indicated; RBC Urine 1-5/HPF (0-5/HPF); Squamous Epithelial Cell Urine 0-1 /HPF (0-5/HPF); WBC Urine 0-1/HPF (0-5/HPF)
== END ==
PROVIDERS: PCP Family Medicine; Referring Provider Family Medicine; Visit Provider Family Medicine
DX: R31.9 Hematuria, unspecified (principal)
CPT/HCPCS: 81001

== ENCOUNTER → 2020-12-15 10:31 | Outpatient (CLI) | payer MEDICARE, OTHER, SELFPAY ==
[2020-12-15 12:10] LABS: BUN Creatinine Ratio 28.6 (6-22); Blood Urea Nitrogen 20 mg/dL (9-20); Calcium 9.6 mg/dL (8.4-10.2); Carbon Dioxide 28 mmol/L (22-32); Chloride 103 mmol/L (98-107); Estimated Glomerular Filt Rate > 60.0 mL/min (>60); Glucose 92 mg/dL (80-110); HEMOLYSIS 20 (0-50); Potassium 4.3 mmol/L (3.4-5.1); Sodium 138 mmol/L (137-145)
== END ==
PROVIDERS: PCP Family Medicine; Referring Provider Physician Assistant; Visit Provider Physician Assistant
DX: I48.19 Other persistent atrial fibrillation (principal)
CPT/HCPCS: 36415; 80048

== ENCOUNTER → 2021-01-18 15:25 | Outpatient (CLI) | payer MEDICARE, OTHER, SELFPAY ==
[2021-01-18 15:29] LABS: Bacteria Urine None Seen
[2021-01-18 15:58] LABS: Appearance Urine UA CLOUDY; Bilirubin Urine UA NEGATIVE (NEGATIVE); Color Urine UA RED; Glucose Urine UA NEGATIVE (Negative); Ketones Urine UA NEGATIVE (NEGATIVE); Leukocyte Esterase Urine UA TRACE (NEGATIVE); Nitrite Urine UA NEGATIVE (Negative); Occult Blood Urine UA 3+ (Negative); Protein Urine UA TRACE (Negative)
[2021-01-18 16:04] LABS: Culture Indicated Urine Specimen Cultured; RBC Urine >100/HPF (0-5/HPF); WBC Urine 5-10/HPF (0-5/HPF)
== END ==
PROVIDERS: PCP Family Medicine; Referring Provider Family Medicine; Visit Provider Family Medicine
DX: R39.89 Other symptoms and signs involving the genitourinary system (principal)
CPT/HCPCS: 81001; 87086

== ENCOUNTER → 2021-05-22 12:30 | Outpatient (CLI) | payer MEDICARE, OTHER, SELFPAY ==
[2021-05-22 13:17] LABS: Add Manual Diff / Slide Review NO; Basophils Absolute Auto 100 /uL (0-100); Basophils Percent Auto 0.7 % (0-2); Eosinophils Absolute Auto 100 /uL (0-450); Eosinophils Percent Auto 0.8 % (2-4); Hematocrit 40.4 % (41-53); Hemoglobin 13.4 g/dL (13.5-17.5); Lymphocytes Absolute Auto 1000 /uL (1100-4500); Lymphocytes Percent Auto 13.9 % (25-40); Mean Corpuscular HGB Conc 33.1 % (30-36); Mean Corpuscular Hemoglobin 28.2 PG (26-34); Mean Corpuscular Volume 85.3 fL (80-100); Monocytes Absolute Auto 900 /uL (0-900); Monocytes Percent Auto 11.9 % (3-14); Neutrophils Absolute Auto 5400 /uL (1500-7000); Neutrophils Percent Auto 72.7 % (50-75); Platelet Count 277 X10^3/uL (150-400); Red Blood Cell Count 4.73 X10^6/uL (4.5-5.9); Red Cell Distribution Width 14.2 % (11.6-14.8); White Blood Cell Count 7.4 X10^3/uL (4.5-11.0)
[2021-05-22 13:40] LABS: Alanine Aminotransferase 14 IU/L (<50); Albumin 4.2 g/dL (3.5-5.0); Albumin Globulin Ratio 1.5 (1.0-2.8); Alkaline Phosphatase 96 U/L (38-126); Aspartate Aminotransferase 19 IU/L (17-59); BUN Creatinine Ratio 23.6 (6-22); Bilirubin Total 0.7 mg/dL (0.2-1.3); Bilirubin Unconjugated 0.7 mg/dL (0.0-1.1); Blood Urea Nitrogen 17 mg/dL (9-20); Calcium 9.7 mg/dL (8.4-10.2); Carbon Dioxide 28 mmol/L (22-32); Chloride 103 mmol/L (98-107); Estimated Glomerular Filt Rate > 60.0 mL/min (>60); Globulin 2.8 g/dL (1.7-4.1); Glucose 93 mg/dL (80-110); HEMOLYSIS < 15 (0-50); Lactate Dehydrogenase 417 U/L (313-618); Phosphorous 3.7 mg/dL (2.3-3.7); Potassium 4.7 mmol/L (3.4-5.1); Sodium 139 mmol/L (137-145)
== END ==
PROVIDERS: PCP Family Medicine; Referring Provider Physician Assistant Medical; Visit Provider Physician Assistant Medical
DX: C43.30 Malignant melanoma of unspecified part of face (principal)
CPT/HCPCS: 36415; 80069; 80076; 83615; 85025

== ENCOUNTER → 2021-12-13 07:04 | Outpatient (CLI) | payer MEDICARE, OTHER, SELFPAY ==
[2021-12-13 07:52] LABS: Add Manual Diff / Slide Review NO; Basophils Absolute Auto 100 /uL (0-100); Basophils Percent Auto 1.1 % (0-2); Eosinophils Absolute Auto 100 /uL (0-450); Hemoglobin 13.6 g/dL (13.5-17.5); Lymphocytes Absolute Auto 700 /uL (1100-4500); Lymphocytes Percent Auto 14.2 % (25-40); Mean Corpuscular Hemoglobin 27.9 PG (26-34); Mean Corpuscular Volume 82.1 fL (80-100); Monocytes Absolute Auto 600 /uL (0-900); Monocytes Percent Auto 11.8 % (3-14); Neutrophils Absolute Auto 3600 /uL (1500-7000); Neutrophils Percent Auto 70.9 % (50-75); Platelet Count 202 X10^3/uL (150-400); Red Blood Cell Count 4.87 X10^6/uL (4.5-5.9); Red Cell Distribution Width 15.1 % (11.6-14.8); White Blood Cell Count 5.1 X10^3/uL (4.5-11.0)
[2021-12-13 08:32] LABS: Alanine Aminotransferase 15 IU/L (<50); Albumin Globulin Ratio 1.3 (1.0-2.8); Alkaline Phosphatase 87 U/L (38-126); Aspartate Aminotransferase 19 IU/L (17-59); BUN Creatinine Ratio 25.6 (6-22); Bilirubin Total 0.7 mg/dL (0.2-1.3); Blood Urea Nitrogen 21 mg/dL (9-20); Calcium 9.1 mg/dL (8.4-10.2); Carbon Dioxide 27 mmol/L (22-32); Chloride 106 mmol/L (98-107); Cholesterol 141 mg/dL (140-199); Estimated Glomerular Filt Rate > 60 mL/min (>60); Glucose 109 mg/dL (80-110); HDL Cholesterol 35 mg/dL (40-60); HEMOLYSIS < 15 (0-50); LDL Cholesterol Calculated 90 mg/dL (<100); Potassium 4.4 mmol/L (3.4-5.1); Sodium 139 mmol/L (137-145); Triglycerides 81 mg/dL (35-150)
[2021-12-13 08:58] LABS: Prostate Specific Antigen Scrn 2.64 ng/mL (0.1-4.0); TSH w/ Reflex to FT4 2.84 uIU/mL (0.47-4.68)
[2021-12-13 10:02] LABS: Creatinine Urine Random 81.5 mg/dL; Microalbumi Creatinin Ratio Ur 18.4 ug/mg CR (<30); Microalbumin Urine Random 1.5 mg/dL (0-1.6)
== END ==
PROVIDERS: PCP Family Medicine; Referring Provider Internal Medicine Cardiovascular Disease; Visit Provider Internal Medicine Cardiovascular Disease
DX: I49.5 Sick sinus syndrome (principal); I10 Essential (primary) hypertension; Z12.5 Encounter for screening for malignant neoplasm of prostate; C43.9 Malignant melanoma of skin, unspecified; I25.10 Atherosclerotic heart disease of native coronary artery without angina pectoris; I48.91 Unspecified atrial fibrillation; R97.20 Elevated prostate specific antigen [PSA]
CPT/HCPCS: 36415; 80053; 80061; 82043; 82570; 84443; 85025; G0103

== ENCOUNTER → 2022-05-04 08:54 | Outpatient (CLI) | payer MEDICARE, OTHER, SELFPAY ==
--- NOTE | 2022-05-04 08:55 | DI.RAD.S_ITS ---
PROCEDURE: XR HIP W PEL IF DONE LT 2V INDICATIONS: left hip pain TECHNIQUE: AP pelvis with lateral view(s) of the left hip(s). COMPARISON: None. FINDINGS: Bones: No fractures or dislocations. Pelvic ring appears intact. No suspicious bony lesions. Severe degenerative changes of the left hip with joint space loss, spurring, subchondral cystic change. Mild right hip degenerative changes also likely present. Soft tissues: The visualized bowel gas pattern is normal. No suspicious soft tissue calcifications. IMPRESSION: Severe left hip degenerative changes. Dictated by: Geovanny Nunes M.D. on 05/04/2022 at 9:55 Approved by: Geovanny Nunes M.D. on 05/04/2022 at 9:57
== END ==
PROVIDERS: PCP Family Medicine; Referring Provider Family Medicine; Visit Provider Family Medicine
DX: M25.552 Pain in left hip (principal); G89.29 Other chronic pain; Z96.659 Presence of unspecified artificial knee joint
CPT/HCPCS: 73502

== ENCOUNTER → 2022-05-21 08:10 | Outpatient (CLI) | payer MEDICARE, OTHER, SELFPAY ==
[2022-05-21 09:32] LABS: Add Manual Diff / Slide Review NO; Basophils Absolute Auto 0 /uL (0-100); Basophils Percent Auto 1.1 % (0-2); Eosinophils Absolute Auto 100 /uL (0-450); Eosinophils Percent Auto 2.5 % (2-4); Hematocrit 41.6 % (41-53); Lymphocytes Absolute Auto 700 /uL (1100-4500); Lymphocytes Percent Auto 15.4 % (25-40); Mean Corpuscular HGB Conc 33.7 % (30-36); Mean Corpuscular Hemoglobin 28.2 PG (26-34); Mean Corpuscular Volume 83.6 fL (80-100); Monocytes Absolute Auto 500 /uL (0-900); Monocytes Percent Auto 11.9 % (3-14); Neutrophils Absolute Auto 3200 /uL (1500-7000); Neutrophils Percent Auto 69.1 % (50-75); Platelet Count 166 X10^3/uL (150-400); Red Blood Cell Count 4.97 X10^6/uL (4.5-5.9); Red Cell Distribution Width 14.6 % (11.6-14.8); White Blood Cell Count 4.6 X10^3/uL (4.5-11.0)
== END ==
PROVIDERS: PCP Family Medicine; Referring Provider Family Medicine; Visit Provider Family Medicine
DX: D72.810 Lymphocytopenia (principal)
CPT/HCPCS: 36415; 85025

== ENCOUNTER → 2023-03-06 09:37 | Outpatient (CLI) | payer MEDICARE, OTHER, SELFPAY ==
[2023-03-06 11:03] LABS: Add Manual Diff / Slide Review NO; Basophils Absolute Auto 0 /uL (0-100); Basophils Percent Auto 0.7 % (0-2); Eosinophils Absolute Auto 100 /uL (0-450); Eosinophils Percent Auto 1.6 % (2-4); Hematocrit 41.1 % (41-53); Hemoglobin 13.7 g/dL (13.5-17.5); Lymphocytes Absolute Auto 900 /uL (1100-4500); Lymphocytes Percent Auto 16.4 % (25-40); Mean Corpuscular HGB Conc 33.3 % (30-36); Mean Corpuscular Hemoglobin 27.6 PG (26-34); Mean Corpuscular Volume 82.9 fL (80-100); Monocytes Absolute Auto 700 /uL (0-900); Monocytes Percent Auto 12.7 % (3-14); Neutrophils Absolute Auto 3600 /uL (1500-7000); Neutrophils Percent Auto 68.6 % (50-75); Platelet Count 184 X10^3/uL (150-400); Red Blood Cell Count 4.96 X10^6/uL (4.5-5.9); Red Cell Distribution Width 15.4 % (11.6-14.8); White Blood Cell Count 5.2 X10^3/uL (4.5-11.0)
[2023-03-06 11:25] LABS: Alanine Aminotransferase 19 IU/L (<50); Albumin Globulin Ratio 1.3 (1.0-2.8); Alkaline Phosphatase 78 U/L (38-126); Aspartate Aminotransferase 20 IU/L (17-59); BUN Creatinine Ratio 24.7 (6-22); Bilirubin Total 0.7 mg/dL (0.2-1.3); Blood Urea Nitrogen 18 mg/dL (9-20); Carbon Dioxide 26 mmol/L (22-32); Chloride 105 mmol/L (98-107); Cholesterol 147 mg/dL (140-199); Estimated Glomerular Filt Rate > 60 mL/min (>60); Globulin 3.1 g/dL (1.7-4.1); Glucose 100 mg/dL (80-110); HDL Cholesterol 33 mg/dL (40-60); HEMOLYSIS < 15 (0-50); LDL Cholesterol Calculated 92 mg/dL (<100); Potassium 4.2 mmol/L (3.4-5.1); Sodium 138 mmol/L (137-145); Total Protein 7.1 g/dL (6.3-8.2); Triglycerides 109 mg/dL (35-150)
[2023-03-06 11:48] LABS: Prostate Specific Antigen 3.05 ng/mL (0.10-4.00)
== END ==
PROVIDERS: PCP Family Medicine; Referring Provider Internal Medicine Cardiovascular Disease; Visit Provider Internal Medicine Cardiovascular Disease
DX: I48.0 Paroxysmal atrial fibrillation (principal); I10 Essential (primary) hypertension; R97.20 Elevated prostate specific antigen [PSA]; D72.810 Lymphocytopenia; I48.91 Unspecified atrial fibrillation
CPT/HCPCS: 36415; 80053; 80061; 84153; 85025

== ENCOUNTER → 2023-08-08 15:24 | Outpatient (CLI) | payer MEDICARE, OTHER, SELFPAY ==
[2023-08-08 19:30] LABS: Influenza A - CEPHEID Flu A NEGATIVE (NEGATIVE); Influenza B - CEPHEID Flu B NEGATIVE (NEGATIVE); Respiratory Syncytial Virus Negative (Negative)
[2023-08-08 19:40] LABS: COVID-19 CEPHEID 4-PLEX PCR Negative (Negative)
== END ==
PROVIDERS: PCP Family Medicine; Visit Provider Physician Assistant
DX: R50.9 Fever, unspecified (principal); J44.1 Chronic obstructive pulmonary disease with (acute) exacerbation
CPT/HCPCS: 0241U

== ENCOUNTER 2023-09-05 06:35 | Day surgery (SDC) | payer MEDICARE, OTHER, SELFPAY ==
--- NOTE | 2023-09-05 | PATH_ITS ---
[facility] Accession Number: [id number] No. of containers..05 Tissue . 01 Material submitted: . PART A: cecum - CECAL POLYP PART B: colon - ASCENDING POLYP PART C: colon - LARGE ASCENDING POLYP PART D: colon - TRANSVERSE POLYP PART E: sigmoid colon - SIGMOID POLYP X 3 . 01 Diagnosis: Part A: CECAL POLYP: Tubular adenoma. . Part B: ASCENDING POLYP: Colonic mucosa with benign lymphoid aggregate. No neoplasm identified. . Part C: LARGE ASCENDING POLYP: Tubular adenoma. . Part D: TRANSVERSE POLYP: Colonic mucosa with focal mucosal hyperplasia. No neoplasm identified. . Specimen Comments: This could represent the early development of a hyperplastic polyp. No dysplasia is seen. . Part E: SIGMOID POLYP X 3: Hyperplastic polyp. [facility] 09/10/2023 1639 Local . 01 Electronically signed: . Bhavik Gimenez MD, Pathologist NPI- [id number] . 01 Gross description: . A. Received in formalin labeled with the patient's name, , and cecal polyp, and consists of a single caicedo soft tissue fragment measuring 0.3 cm in greatest dimension. Submitted entirely in cassette A1. B. Received in formalin labeled with the patient's name, , and ascending colon polyp, and consists of multiple caicedo soft tissue fragments aggregating to 0.5 x 0.5 x 0.1 cm. Filtered and submitted entirely in cassette B1. C. Received in formalin labeled with the patient's name, , and large ascending colon polyp, and consists of multiple caicedo soft tissue fragments aggregating to 1.5 x 1.4 x 0.2 cm. Filtered and submitted entirely in cassette C1. D. Received in formalin labeled with the patient's name, , and transverse colon polyp, and consists of a single caicedo soft tissue fragment mesuring 0.2 cm in greatest dimension. Submitted entirely in cassette D1. E. Received in formalin labeled with the patient's name, , and sigmoid polyp x3, and consists of a single caicedo soft tissue fragment measuring 0.3 cm in greatest dimension. Submitted entirely in cassette E1. ([id number]) /ROBERTO 09/10/2023 1636 Local . 01 Pathologist provided ICD-10: D12.0, D12.2, K63.5, K63.89 . 01 CPT . 047321, 904011, 023690, 905225, [id number] Specimen Comment: A courtesy copy of this report has been sent to [phone] Performed at: 01 [facility] [address] [place] [address], [place], [place] [id number] MD Bhavik Gimenez MD Phone: [phone]
[2023-09-05] MEDS: LACTATED RINGERS 1,000 ML 42 ML IV (07:07)
[2023-09-05 07:13] VITALS: BP 150/97; PULSE 64; RESP 20; TEMP 35.9; O2SAT 94
--- NOTE | 2023-09-05 08:10 | PM.HP.1 ---
History of Present Illness History of Present Illness Date Patient Seen: 09/05/23 Time Patient Seen: 08:11 Chief complaint: SDC Narrative: Irwin is a 78 year old man who last had a colonoscopy in [address] William. Several tubular adenomas were resected. No family history of colon cancer. 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) Knee pain (1995) BCC (basal cell carcinoma of skin) Mumps (~1949) Measles (~1949) Herpes (1976) Chicken pox (1951) GERD (gastroesophageal reflux disease) (~1994) Tachycardia-bradycardia syndrome Atrial fibrillation (10/2014) Obstructive sleep apnea of adult Snoring Prostatism (06/28/16) Post-operative pain Surgical History (Updated 06/13/22 @ 14:41 by Mat Jones MD) History of squamous cell carcinoma excision (08/14/17) History of left heart catheterization (03/2016) History of right knee surgery (06/26/07) Status post placement of cardiac pacemaker (12/13/15) Status post surgical manipulation of knee joint (07/26/16) Anesthesia Status post Mohs surgery for basal cell carcinoma (2004) History of colonoscopy (2004) History of total left knee replacement (TKR) (04/23/16) History of esophagogastroduodenoscopy (EGD) (10/20/10) Status post arthroscopy (04/23/16) Status post colonoscopy Status post arthroscopy (~2002) Status post arthroscopy (~1996) History of esophagogastroduodenoscopy (EGD) (11/11/12) Status post biopsy (10/20/10) Family History Father Cancer Lung cancer Grandfather Cancer Cancer of kidney Mother Atherosclerosis AAA (abdominal aortic aneurysm) Sister Age: 76 Obese Chronic knee pain Chronic foot pain Brother No problems noted. Grandmother Dementia Grandfather No problems noted. Grandmother Brain tumor Sister Fibromyalgia Other CAD (coronary artery disease) Hypertension Social History marital status: details: elvia Romeo, lives in [place] household members: spouse lives independently: Yes caregiver/support person: No housing: house Smoking Status: Former smoker Tobacco: How many years used: 8 alcohol intake: current substance use type: does not use Meds Home Medications and Allergies Home Medications Medication Instructions Recorded Confirmed Type Respironics RemStar CPAP #1 ea 08/01/18 05/16/23 History sotalol 80 mg tablet 120 mg PO BID 01/08/20 05/16/23 History apixaban 5 mg tablet (Eliquis) 5 mg PO BID #60 tabs 03/28/20 09/05/23 Rx finasteride 5 mg tablet 5 mg PO DAILY #90 tabs 06/21/20 09/05/23 Rx multivitamin 1 tab PO DAILY 04/18/21 09/05/23 History vitamins A,C,G-mmcs-bwnarw 2,148 2 tab PO BID 07/31/21 05/16/23 History mcg-113 mg-45 mg-17.4 mg tablet (PreserVision AREDS) omeprazole 20 mg capsule,delayed 20 mg PO DAILY 05/16/23 08/08/23 History release lisinopril 20 mg tablet 20 mg PO DAILY #90 tabs 05/17/23 09/05/23 Rx albuterol sulfate 90 mcg/actuation 2 puff inhalation Q6H PRN 08/08/23 09/05/23 Rx aerosol inhaler shortness of breath or wheezing #6.7 grams fluorouracil 5 % topical cream applic topical 08/08/23 08/08/23 History inhalational spacing device #1 ea 08/08/23 08/08/23 Rx (BreatheRite MDI Spacer) sotalol 120 mg tablet 120 mg PO BID 08/08/23 08/08/23 History sodium,potassium,mag sulfates 17.5 See Rx Instructions PO .COMPLEX 08/12/23 Rx gram-3.13 gram-1.6 gram oral soln #354 mL (Suprep Bowel Prep Kit) benzonatate 100 mg capsule 100 mg PO BID PRN cough #20 caps 08/22/23 09/05/23 Rx nitroglycerin 0.4 mg sublingual 0.4 mg sublingual PRN PRN Chest 09/05/23 09/05/23 History tablet (Nitrostat) Pain Allergies Allergy/AdvReac Type Severity Reaction Status Date / Time No Known Drug Allergies Allergy Verified 09/05/23 07:10 Exam Vital Signs (past 8 hours): - 09/05/23 07:13 Temperature 96.7 F L Pulse Rate 64 Respiratory Rate 20 Blood Pressure 150/97 H Pulse Oximetry 94 Oxygen Delivery Method Room Air Oxygen Delivery Method Room Air Const General: healthy appearing Assessment & Plan Assessment and plan (1) History of colon polyps: Status: Acute Plan We reviewed the risks and benefits of colonoscopy for history of polyps and he would like to proceed.
--- NOTE | 2023-09-05 09:02 | PM.OP.COLON ---
Operative Date/Time/Diagnoses Date of procedure: 09/05/23 Time of procedure: 09:02 Pre-op diagnosis: History of polyps Post-op diagnosis: same Procedure & Clinicians Study performed: Colonoscopy Same procedure as scheduled: Yes Surgeon: Ravi Wood Procedure Notes Procedure in detail: Surgeon: Ravi Wood MD Anesthesia: Adelia Fitch D.O. Procedure: The patient was brought to the endoscopy suite, placed in left lateral decubitus position. The patient was connected to monitoring devices. A time-out was performed. Sedation was administered. Once the patient was adequately sedated, a digital rectal exam was performed and was normal. The scope was then inserted and advanced to the cecum where the appendiceal orifice was identified and photographed. The scope was then slowly withdrawn over greater than 6 minutes. The mucosa was thoroughly inspected. There was a 5 mm polyp in the cecum removed with a cold snare. There was a 1.2 cm polyp ascending colon removed with a hot snare. There was a 5 mm polyp ascending colon removed with a cold snare. There was 2 mm polyp in the transverse colon removed with a cold snare. There were 3 3 mm polyps in the distal sigmoid colon removed with cold snare and sent together. There was pandiverticulosis. The scope was retroflexed in the rectum. No other abnormalities were seen. The scope was straightened and removed. The patient was awakened and brought to recovery. Scope withdrawal time: 25 minutes Sedation time: 41 minutes EBL: 5 mL Findings: 1.2 cm polyp in the ascending colon, multiple subcentimeter polyps throughout the colon, pandiverticulosis Post-procedure Disposition: PACU
[2023-09-05 09:06] VITALS: BP 119/69; PULSE 60; RESP 15; TEMP 36.1; O2SAT 96
[2023-09-05 09:11] VITALS: BP 124/75; PULSE 60; RESP 15; O2SAT 96
[2023-09-05 09:16] VITALS: BP 113/77; PULSE 61; RESP 15; TEMP 36.1; O2SAT 94
[2023-09-05 09:20] VITALS: BP 137/81; PULSE 60; RESP 15; O2SAT 96
== END 2023-09-05 09:38 | disposition home or self-care (01) ==
PROVIDERS: PCP Family Medicine; Referring Provider Surgery; Visit Provider Surgery
PROC: 0DJD8ZZ Inspection of Lower Intestinal Tract, Via Natural or Artificial Opening Endoscopic (ICD-10-PCS; CPT 45378; principal; 2023-09-05 07:45)
DX: Z12.11 Encounter for screening for malignant neoplasm of colon (principal); Z86.010 Personal history of colon polyps; K57.30 Diverticulosis of large intestine without perforation or abscess without bleeding; D12.0 Benign neoplasm of cecum; D12.2 Benign neoplasm of ascending colon
CPT/HCPCS: 45385; J2704

== ENCOUNTER → 2023-10-21 09:36 | Outpatient (CLI) | payer MEDICARE, OTHER, SELFPAY | LOC: RESP 09:37 | PROVIDERS: PCP Family Medicine; Referring Provider Family Medicine; Visit Provider Family Medicine | DX: J44.9 Chronic obstructive pulmonary disease, unspecified (principal); Z87.891 Personal history of nicotine dependence | CPT/HCPCS: 94060; 94726; 94729 ==

== ENCOUNTER → 2023-10-24 | Outpatient (CLI) | payer MEDICARE, OTHER, SELFPAY ==
--- NOTE | 2023-10-24 10:09 | DI.CT.S_ITS ---
PROCEDURE: CT CHEST WO CON INDICATIONS: Malignant melanoma of unspecified part of face TECHNIQUE: Noncontrast 5 mm thick sections acquired from the pulmonary apices to the posterior costophrenic angles. 1 mm lung window, 5 mm thick coronal and sagittal and 7 mm axial MIP reformats were then acquired. For radiation dose reduction, the following was used: automated exposure control, adjustment of mA and/or kV according to patient size. COMPARISON: Outside Facility, RG, CT THORAX WITH CONTRAST, 08/23/2023, 7:51. FINDINGS: Image quality: Diagnostic. Lower Neck: No enlarged lymph nodes. Thyroid: No thyroid nodules which require sonographic follow up, per consensus guidelines. Axillae: No enlarged lymph nodes. Chest Wall: Cardiac pacemaker is seen with pulse generator in the left chest. Bones: Unremarkable. Lungs and Pleura: Mild posterior tree-in-bud nodularity is seen in the posterior right upper lobe that may be infectious or inflammatory in etiology (76/3). Stable 4 mm nodule along the right minor fissure (190/3). Stable small chronic appearing micro nodules along the anterior right middle lobe. Previously described 2 mm right upper lobe nodule is not redemonstrated. Large blebs are again seen in the anterior left lung base and lingula. Mild centrilobular emphysema. Focal fat attenuation is seen along the pleura of the posterolateral left upper lobe without suspicious soft tissue component (28/2). No pneumothorax or pleural effusions. Heart: Heart size is normal. No pericardial effusion. Thoracic Vessels: The aorta and pulmonary arteries demonstrate normal size. Mediastinum and Rosa: No enlarged lymph nodes. Esophagus: No wall thickening. No hiatal hernia. Upper Abdomen: Visualized upper abdomen solid organs and bowel loops appear normal. IMPRESSION: 1. New focal clustered tree-in-bud nodules in the posterior right upper lobe may be related to a nonspecific mild infectious or inflammatory process. 2. Previously seen 2 mm right upper lobe nodule on CT from 08/23/2023 is not redemonstrated. No suspicious new pulmonary nodule. 3. No significant lymphadenopathy or signs of distant metastatic disease within the chest. Approved by: Geovanny Brito M.D. on 10/30/2023 at 8:17
== END ==
PROVIDERS: PCP Family Medicine; Referring Provider Physician Assistant Medical; Visit Provider Physician Assistant Medical
DX: C43.30 Malignant melanoma of unspecified part of face (principal); R91.8 Other nonspecific abnormal finding of lung field; J43.2 Centrilobular emphysema; Z95.0 Presence of cardiac pacemaker
CPT/HCPCS: 71250

== ENCOUNTER → 2024-01-08 06:55 | Outpatient (CLI) | payer MEDICARE, OTHER, SELFPAY ==
[2024-01-08 07:48] LABS: Add Manual Diff / Slide Review NO; Basophils Absolute Auto 0 /uL (0-100); Basophils Percent Auto 0.9 % (0-2); Eosinophils Absolute Auto 100 /uL (0-450); Eosinophils Percent Auto 1.6 % (2-4); Hematocrit 41.4 % (41-53); Hemoglobin 14.1 g/dL (13.5-17.5); Lymphocytes Absolute Auto 700 /uL (1100-4500); Lymphocytes Percent Auto 14.7 % (25-40); Mean Corpuscular Hemoglobin 28.9 PG (26-34); Monocytes Absolute Auto 500 /uL (0-900); Neutrophils Absolute Auto 3400 /uL (1500-7000); Neutrophils Percent Auto 71.8 % (50-75); Platelet Count 173 X10^3/uL (150-400); Red Blood Cell Count 4.86 X10^6/uL (4.5-5.9); Red Cell Distribution Width 14.3 % (11.6-14.8); White Blood Cell Count 4.7 X10^3/uL (4.5-11.0)
[2024-01-08 08:05] LABS: HEMOLYSIS < 15 (0-50)
[2024-01-08 08:12] LABS: Alanine Aminotransferase 19 IU/L (<50); Albumin Globulin Ratio 1.5 (1.0-2.8); Alkaline Phosphatase 71 U/L (38-126); Aspartate Aminotransferase 21 IU/L (17-59); BUN Creatinine Ratio 28.2 (6-22); Blood Urea Nitrogen 22 mg/dL (9-20); Calcium 8.5 mg/dL (8.4-10.2); Carbon Dioxide 25 mmol/L (22-32); Chloride 110 mmol/L (98-107); Cholesterol 139 mg/dL (140-199); Estimated Glomerular Filt Rate > 60 mL/min (>60); Globulin 2.7 g/dL (1.7-4.1); Glucose 108 mg/dL (80-110); HDL Cholesterol 40 mg/dL (40-60); LDL Cholesterol Calculated 84 mg/dL (<100); Potassium 4.2 mmol/L (3.4-5.1); Sodium 139 mmol/L (137-145); Total Protein 6.7 g/dL (6.3-8.2); Triglycerides 75 mg/dL (35-150)
[2024-01-08 08:43] LABS: TSH w/ Reflex to FT4 2.63 uIU/mL (0.47-4.68)
[2024-01-08 08:44] LABS: Creatinine Urine Random 185.81 mg/dL
[2024-01-08 08:50] LABS: Microalbumin Urine Random 3.7 mg/dL (0-1.6)
[2024-01-08 14:32] LABS: Prostate Specific Antigen Scrn 1.72 ng/mL (0.1-4.0)
[2024-01-09 16:10] LABS: Hep C Virus Ab w/Reflex Quant NEGATIVE s/c (NEGATIVE)
[2024-01-10 05:37] LABS: Apolipoprotein B 74 mg/dL (<90)
[2024-01-12 14:38] LABS: Cholesterol, Total 144 mg/dL (100-199); HDL-Cholesterol 43 mg/dL (>39); LDL Particle 1081 nmol/L (<1000); LDL Size 20.7 nm (>20.5); LDL-Cholsterol 86 mg/dL (0-99); LP-IR Score 52 (<=45); Small LDL- Particle 407 nmol/L (<=527); Triglycerides 75 mg/dL (0-149)
[2024-01-14 11:13] LABS: Lipoprotein (a) 47.1 nmol/L (<75.0)
== END ==
PROVIDERS: PCP Family Medicine; Referring Provider Internal Medicine Cardiovascular Disease; Visit Provider Internal Medicine Cardiovascular Disease
DX: Z12.5 Encounter for screening for malignant neoplasm of prostate (principal); E78.5 Hyperlipidemia, unspecified; I10 Essential (primary) hypertension; I48.91 Unspecified atrial fibrillation; I25.10 Atherosclerotic heart disease of native coronary artery without angina pectoris; J44.89 Other specified chronic obstructive pulmonary disease
CPT/HCPCS: 36415; 80053; 80061; 82043; 82172; 82570; 83695; 83704; 84443; 85025; 86803; G0103

== ENCOUNTER → 2024-01-14 10:12 | Outpatient (CLI) | payer MEDICARE, OTHER, SELFPAY ==
--- NOTE | 2024-01-14 10:13 | DI.NM.S_ITS ---
PROCEDURE: NM GA PERF SPECT R&S PHARM Rest and pharmacological stress myocardial perfusion SPECT with gated imaging and ejection fraction RADIOPHARMACEUTICAL: 12.0 mCi Tc-99m tetrafosmin IV at rest and 24.4 mCi Tc-99m tetrafosmin IV at peak effect of pharmacological stress. [id number] was performed. INDICATIONS: Paroxysmal atrial fibrillation TECHNIQUE: Radiopharmaceutical was injected at peak stress test, and also at rest. SPECT images were obtained. SPECT myocardial perfusion images were displayed in short axis, horizontal long axis, and vertical long axis views. Gated images were reviewed using ShoutOut software. COMPARISON: None. CARDIAC STRESS: The patient exercised for 6 minutes and 32 seconds reaching only 71% of maximum predicted heart rate as he had taken his sotalol in the morning. Study was switched to pharmacologic stress test that was performed under the supervision of an attending staff, using an infusion of lexiscan . Hemodynamic data: There is normal blood pressure and heart rate response to pharmacologic stress. Symptoms: The patient denied anginal chest pain. Aminophylline: none EKG: No diagnostic changes of ischemia; occasional PVCs present. FINDINGS: Raw data: There is good myocardial uptake of radiotracer. No significant motion artifacts. Ghfm-qu-tocod ratio is 0.3 (normal is less than 0.38 for tetrafosmin tracer). Left ventricle function: Gated images demonstrate normal left ventricular wall thickening. No segmental wall motion abnormalities. No transient ischemic dilation; TID is 1.04 (normal less than 1.3). Left ventricle resting end diastolic volume is 136 mL. Left ventricle stress ejection fraction is 74%; normal range is above 45%. Myocardial perfusion: There is a severe fixed inferior wall defect that resolves with prone imaging, suggesting artifact. No definite ischemia or prior infarction. IMPRESSION: Low risk, normal pharm nuclear stress test 1) No definite ischemia or prior infarction. There is a severe fixed inferior wall defect that resolves with prone imaging, suggesting artifact. 2) Normal left ventricular size, wall motion, and systolic function (EF 74% post stress). 3) No diagnostic ST changes with exercise or recovery or with lexiscan. 4) No angina during the study. 5) Fair exercise tolerance (7.0METs). Since only target heart rate wasn't reached (probably due to sotalol), study was switched to lexiscan. 6) Compared to the nuclear stress 03/08/2016, attenuation artifact is noted on this study. Dictated by: Damon Muniz MD on 01/14/2024 at 17:04 Approved by: Damon Muniz MD on 01/14/2024 at 17:12
== END ==
PROVIDERS: PCP Family Medicine; Referring Provider Internal Medicine Cardiovascular Disease; Visit Provider Internal Medicine Cardiovascular Disease
DX: I48.0 Paroxysmal atrial fibrillation (principal)
CPT/HCPCS: 78452; 93017; A9502; J2785

== ENCOUNTER 2024-03-10 15:39 | Emergency (ER) | payer MEDICARE, OTHER, SELFPAY ==
[2024-03-10] VITALS (9 sets, daily range): BP systolic 146–182; BP diastolic 71–88; PULSE 60–80; RESP 13–19; TEMP 36.7; O2SAT 94–96; BMI 30.9
--- NOTE | 2024-03-10 16:10 | EKG_ITS ---
[facility] [address] [place] [address] Test Date: 2024-03-10 Pat Name: Anmol Terrell Department: [facility] Room: Gender: Male Supervisor Modern Languages: SOBEIDA : 1945 Requested By: Order Number: [id number] Reading MD: Anthony Kaur Measurements Intervals [place] Rate: 61 P: [place]: 284 QRS: -19 QRSD: 110 T: 10 QT: 434 QTc: 436 Interpretive Statements Atrial-paced rhythm with prolonged AV conduction Cannot rule out Anterior infarct , age undetermined Electronically Signed On 03-11-2024 8:51:22 PDT by Anthony Kaur
--- NOTE | 2024-03-10 16:10 | DI.RAD.S_ITS ---
PROCEDURE: XR CHEST 1V INDICATIONS: altered mental status TECHNIQUE: One view of the chest was acquired. COMPARISON: [facility], CR, XR CHEST 2V, 06/29/2019, 13:29. FINDINGS: Surgical changes and devices: Left cardiac pacemaker. Lungs and pleura: Lungs are clear. No pleural effusions or pneumothorax. Mediastinum: Mediastinal contours appear normal. Heart size is normal. Bones and chest wall: No suspicious bony lesions. Overlying soft tissues appear unremarkable. IMPRESSION: Stable radiographic evaluation of the chest without acute cardiopulmonary abnormalities or focal consolidation. Dictated by: Jose Rosado M.D. on 03/10/2024 at 17:15 Approved by: Jose Rosado M.D. on 03/10/2024 at 17:16
[2024-03-10 16:38] LABS: Add Manual Diff / Slide Review NO; Basophils Absolute Auto 100 /uL (0-100); Basophils Percent Auto 1.1 % (0-2); Eosinophils Absolute Auto 100 /uL (0-450); Eosinophils Percent Auto 1.4 % (2-4); Hematocrit 42.1 % (41-53); Hemoglobin 14.2 g/dL (13.5-17.5); Lymphocytes Absolute Auto 900 /uL (1100-4500); Lymphocytes Percent Auto 13.8 % (25-40); Mean Corpuscular HGB Conc 33.8 % (30-36); Mean Corpuscular Volume 85.9 fL (80-100); Monocytes Absolute Auto 600 /uL (0-900); Monocytes Percent Auto 8.9 % (3-14); Neutrophils Absolute Auto 4700 /uL (1500-7000); Neutrophils Percent Auto 74.8 % (50-75); Platelet Count 192 X10^3/uL (150-400); Red Cell Distribution Width 14.8 % (11.6-14.8); White Blood Cell Count 6.2 X10^3/uL (4.5-11.0)
--- NOTE | 2024-03-10 16:46 | DI.CT.S_ITS ---
PROCEDURE: CT HEAD/BRAIN WO CON INDICATIONS: confusion TECHNIQUE: Noncontrast 4.5 mm thick angled axial sections acquired from the foramen magnum to the vertex, with coronal and sagittal reformats. For radiation dose reduction, the following was used: automated exposure control, adjustment of mA and/or kV according to patient size. COMPARISON: None. FINDINGS: Image quality: Diagnostic. CSF spaces: Basal cisterns are patent. No extra-axial fluid collections. The ventricles are symmetric in size and shape. Brain: No intracranial bleeds or masses. There is cerebral volume loss for age, with resultant ventricular and sulcal prominence. There are periventricular and deep white matter chronic small vessel ischemic changes. There is intracranial internal carotid artery atherosclerosis. Skull and face: Calvarium and visualized facial bones appear intact, without suspicious lesions. Sinuses: Visualized sinuses and mastoids are clear. IMPRESSION: 1. No acute intracranial process. 2. Moderate atrophy and chronic microvascular ischemic changes. Dictated by: Anne Bhat M.D. on 03/10/2024 at 17:12 Approved by: Anne Bhat M.D. on 03/10/2024 at 17:13
[2024-03-10 16:55] LABS: Ethanol (ETOH) < 10 mg/dL
[2024-03-10 16:56] LABS: Alanine Aminotransferase 23 IU/L (<50); Albumin 4.1 g/dL (3.5-5.0); Albumin Globulin Ratio 1.4 (1.0-2.8); Alkaline Phosphatase 84 U/L (38-126); Ammonia (NH3) < 9 umol/L (9-30); Aspartate Aminotransferase 22 IU/L (17-59); BUN Creatinine Ratio 23.6 (6-22); Bilirubin Total 0.6 mg/dL (0.2-1.3); Blood Urea Nitrogen 17 mg/dL (9-20); Calcium 9.2 mg/dL (8.4-10.2); Carbon Dioxide 23 mmol/L (22-32); Chloride 107 mmol/L (98-107); Estimated Glomerular Filt Rate > 60 mL/min (>60); Glucose 138 mg/dL (80-110); HEMOLYSIS < 15 (0-50); Potassium 3.9 mmol/L (3.4-5.1); Sodium 139 mmol/L (137-145); Total Protein 7.1 g/dL (6.3-8.2)
[2024-03-10 17:37] LABS: Ur Creatinine Normal (Normal); Ur Specific Gravity Normal (Normal); Urine pH Normal (Normal)
--- NOTE | 2024-03-10 17:37 | PC.NURSE ---
reports that they were at [employer], he sat down and could not remember that he bought a brownie. pt's forgetfulness is not normal per . fast negative.
[2024-03-10 17:38] LABS: UR Morphine/Opiate cutoff 300 Negative (Negative); Urine Amphetamines Negative (Negative); Urine Barbiturates Negative (Negative); Urine Benzodiazepines Negative (Negative); Urine Cocaine Negative (Negative); Urine MDMA Negative (Negative); Urine Methadone Negative (Negative); Urine Methamphetamines Negative (Negative); Urine Oxycodone Negative (Negative); Urine Phencyclidine Negative (Negative); Urine Tetrahydrocannabinol Negative (Negative); Urine Tricyclic Antidepressant Negative (Negative)
[2024-03-10 18:20] LABS: Bacteria Urine None Seen; Culture Indicated Urine Cult Not Indicated; RBC Urine None Seen (0-5/HPF); Squamous Epithelial Cell Urine None Seen (0-5/HPF); Urine Volume 10mL (spun); WBC Urine 0-1/HPF (0-5/HPF)
--- NOTE | 2024-03-10 18:34 | ED.AMS ---
HPI - Altered Mental Status General Chief Complaint: Altered Mental Status Stated Complaint: Confusion Time Seen by Provider: 03/10/24 16:24 Source: patient and family Mode of arrival: Ambulatory History of Present Illness HPI narrative: 78-year-old male with history of AFib on Eliquis, coronary disease presents by private vehicle from home for confusion that started today. 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 states that patient normally has ?an excellent GPS?, however today patient repeatedly forgot where their vehicle was parked and whether or not things had been paid for at the store when they went to buy lunch. states that this is highly unusual for the patient and an abrupt change. Patient had no memory or spacial issues prior to lunchtime today. Patient states he feels fine and has no complaints. Related Data Home Medications Medication Instructions Recorded Confirmed Respironics RemStar CPAP #1 ea 08/01/18 12/04/23 sotalol 80 mg tablet 120 mg PO BID 01/08/20 12/04/23 multivitamin 1 tab PO DAILY 04/18/21 12/04/23 vitamins A,C,W-kuoq-pjnrgs 2,148 2 tab PO BID 07/31/21 12/04/23 mcg-113 mg-45 mg-17.4 mg tablet (PreserVision AREDS) omeprazole 20 mg capsule,delayed 20 mg PO DAILY 05/16/23 12/04/23 release fluorouracil 5 % topical cream applic topical 08/08/23 12/04/23 sotalol 120 mg tablet 120 mg PO BID 08/08/23 12/04/23 nitroglycerin 0.4 mg sublingual 0.4 mg sublingual PRN PRN Chest 09/05/23 12/04/23 tablet (Nitrostat) Pain Previous Rx's Medication Instructions Recorded apixaban 5 mg tablet (Eliquis) 5 mg PO BID #60 tabs 03/28/20 finasteride 5 mg tablet 5 mg PO DAILY #90 tabs 06/21/20 lisinopril 20 mg tablet 20 mg PO DAILY #90 tabs 05/17/23 albuterol sulfate 90 mcg/actuation 2 puff inhalation Q6H PRN 08/08/23 aerosol inhaler shortness of breath or wheezing #6.7 grams inhalational spacing device #1 ea 08/08/23 (BreatheRite MDI Spacer) nirmatrelvir 300 mg (150 mg See Rx Instructions PO .COMPLEX 02/18/24 x2)-ritonavir 100 mg tablet,dose #30 ea pack (Paxlovid) tamsulosin 0.4 mg capsule 0.4 mg PO DAILY #90 caps 02/26/24 Allergies Allergy/AdvReac Type Severity Reaction Status Date / Time No Known Drug Allergies Allergy Verified 12/04/23 08:54 Patient History Medical History Melanoma Kidney cysts Anticoagulated on Coumadin BPH (benign prostatic hyperplasia) Prostatitis 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) Knee pain (1995) BCC (basal cell carcinoma of skin) Mumps (~1949) Measles (~1949) Herpes (1976) Chicken pox (1951) GERD (gastroesophageal reflux disease) (~1994) Tachycardia-bradycardia syndrome Atrial fibrillation (10/2014) Obstructive sleep apnea of adult Snoring Prostatism (06/28/16) Post-operative pain Surgical History History of squamous cell carcinoma excision (08/14/17) History of left heart catheterization (03/2016) History of right knee surgery (06/26/07) Status post placement of cardiac pacemaker (12/13/15) Status post surgical manipulation of knee joint (07/26/16) Anesthesia Status post Mohs surgery for basal cell carcinoma (2004) History of colonoscopy (2004) History of total left knee replacement (TKR) (04/23/16) History of esophagogastroduodenoscopy (EGD) (10/20/10) Status post arthroscopy (04/23/16) Status post colonoscopy Status post arthroscopy (~2002) Status post arthroscopy (~1996) History of esophagogastroduodenoscopy (EGD) (11/11/12) Status post biopsy (10/20/10) Family History Father Cancer Lung cancer Grandfather Cancer Cancer of kidney Mother Atherosclerosis AAA (abdominal aortic aneurysm) Sister Age: 76 Obese Chronic knee pain Chronic foot pain Brother No problems noted. Grandmother Dementia Grandfather No problems noted. Grandmother Brain tumor Sister Fibromyalgia Other CAD (coronary artery disease) Hypertension Social History marital status: details: elvia Romeo, lives in [place] household members: spouse lives independently: Yes caregiver/support person: No housing: house Smoking Status: Former smoker Tobacco: How many years used: 8 alcohol intake: current substance use type: does not use Smoking Status: Former smoker alcohol intake frequency: 0-2 drinks per day Alcohol type: wine and hard liquor Substance Use Type: marijuana Exam Initial Vital Signs Initial Vital Signs: Vital Signs Temperature 98.0 F 03/10/24 15:55 Pulse Rate 74 03/10/24 15:55 Respiratory Rate 18 03/10/24 15:55 Blood Pressure 162/81 H 03/10/24 15:55 Pulse Oximetry 96 03/10/24 15:55 Oxygen Delivery Method Room Air 03/10/24 15:55 Const: Awake, alert, no acute distress, nontoxic appearing Cardiac: regular rate, regular rhythm RESP: unlabored, clear bilaterally, no wheezing GI: Soft, nontender, nondistended, no rebound, no guarding MSK: Atraumatic, full range of motion, pulses equal Skin: Warm, Dry, intact, no rashes Neuro: AO x3, CN II-XII grossly intact, moves all extremities, no numbness, no focal weakness, normal speech Course Orders Ordered: ED Orders 03/10/24 16:10 XR chest 1V Stat EKG-12 Lead Stat 03/10/24 16:23 Ammonia (NH3) Stat Complete Blood Count AUTO DIFF Stat Comprehensive Metabolic Panel Stat Ethanol (ETOH) Stat 03/10/24 16:46 CT head/brain wo con Stat 03/10/24 17:00 Urine Drug Screen, Rapid Stat Urine Microscopic Stat Vital Signs Vital signs: Vital Signs - 8 hr 03/10/24 19:00 03/10/24 19:00 Pulse Rate 60 Respiratory Rate 15 Blood Pressure 170/81 H Pulse Oximetry 95 Oxygen Delivery Method Room Air MDM - Altered Mental Status Differential Diagnosis Differential diagnosis: Likely altered mental status, dementia and hyponatremia Lab Data 03/10/24 16:23 03/10/24 16:23 Labs: Lab Results 03/10/24 03/10/24 Range/Units 16:23 17:00 WBC 6.2 (4.5-11.0) X10^3/uL RBC 4.90 (4.5-5.9) X10^6/uL Hgb 14.2 (13.5-17.5) g/dL Hct 42.1 (41-53) % MCV 85.9 (80-100) fL MCH 29.0 (26-34) PG MCHC 33.8 (30-36) % RDW 14.8 (11.6-14.8) % Plt Count 192 (150-400) X10^3/uL Neut % (Auto) 74.8 (50-75) % Lymph % (Auto) 13.8 L (25-40) % [place] % (Auto) 8.9 (3-14) % Eos % (Auto) 1.4 L (2-4) % Baso % (Auto) 1.1 (0-2) % Neut # (Auto) 4700 (9207-2317) /uL Lymph # (Auto) 900 L (1165-0116) /uL [place] # (Auto) 600 (0-900) /uL Eos # (Auto) 100 (0-450) /uL Baso # (Auto) 100 (0-100) /uL Sodium 139 (137-145) mmol/L Potassium 3.9 (3.4-5.1) mmol/L Chloride 107 (98-107) mmol/L Carbon Dioxide 23 (22-32) mmol/L BUN 17 (9-20) mg/dL Creatinine 0.72 (0.66-1.25) mg/dL Estimated GFR > 60 (>60) mL/min BUN/Creatinine Ratio 23.6 H (6-22) Glucose 138 H (80-110) mg/dL Calcium 9.2 (8.4-10.2) mg/dL Total Bilirubin 0.6 (0.2-1.3) mg/dL AST 22 (17-59) IU/L ALT 23 (<50) IU/L Alkaline Phosphatase 84 (38-126) U/L Ammonia < 9 L (9-30) umol/L Total Protein 7.1 (6.3-8.2) g/dL Albumin 4.1 (3.5-5.0) g/dL Globulin 3.0 (1.7-4.1) g/dL Albumin/Globulin Ratio 1.4 (1.0-2.8) Urine RBC None seen (0-5/HPF) Urine WBC 0-1/hpf (0-5/HPF) Ur Squamous Epith Cells None seen (0-5/HPF) Urine Bacteria None seen (None) Ur Culture Indicated? Cult not indicated Vol Urine Centrifuged 10ml (spun) U Opiates 300ng/mL cut Negative (Negative) Ur Oxycodone Screen Negative (Negative) Urine Methadone Screen Negative (Negative) Ur Barbiturates Screen Negative (Negative) U Tricyclic Antidepress Negative (Negative) Ur Phencyclidine Scrn Negative (Negative) Ur Amphetamines Screen Negative (Negative) U Methamphetamines Scrn Negative (Negative) Ur MDMA Scrn (Ecstasy) Negative (Negative) U Benzodiazepines Scrn Negative (Negative) Urine Cocaine Screen Negative (Negative) U Marijuana (THC) Screen Negative (Negative) Urine pH Normal (Normal) Urine Specific [place] Normal (Normal) Ethyl Alcohol < 10 ( - 10) mg/dL Ur Creatinine Normal (Normal) Point of Care Testing Glucose POC 97 Urine Dip Bedside Urine Glucose Negative Bedside Urine Bilirubin - Negative Bedside Urine Ketone - Negative Urine Specific [place] 1.015 Bedside Urine Occult Blood - Negative Bedside Urine pH 6.5 Bedside Urine Protein - Negative Bedside Urine Urobilinogen +/- 1mg Bedside Urine Nitrite - Negative Bedside Urine Leukocytes - Negative Esterase Imaging Data CT scan - head: Radiologist's Impression: PROCEDURE: CT HEAD/BRAIN WO CON INDICATIONS: confusion TECHNIQUE: Noncontrast 4.5 mm thick angled axial sections acquired from the foramen magnum to the vertex, with coronal and sagittal reformats. For radiation dose reduction, the following was used: automated exposure control, adjustment of mA and/or kV according to patient size. COMPARISON: None. FINDINGS: Image quality: Diagnostic. CSF spaces: Basal cisterns are patent. No extra-axial fluid collections. The ventricles are symmetric in size and shape. Brain: No intracranial bleeds or masses. There is cerebral volume loss for age, with resultant ventricular and sulcal prominence. There are periventricular and deep white matter chronic small vessel ischemic changes. There is intracranial internal carotid artery atherosclerosis. Skull and face: Calvarium and visualized facial bones appear intact, without suspicious lesions. Sinuses: Visualized sinuses and mastoids are clear. IMPRESSION: 1. No acute intracranial process. 2. Moderate atrophy and chronic microvascular ischemic changes. Dictated by: Anne Bhat M.D. on 03/10/2024 at 17:12 Approved by: Anne Bhat M.D. on 03/10/2024 at 17:13 ECG Data Interpretation: atrial paced rhythm, no ST-T wave changes, no STEMI MDM Narrative Medical decision making narrative: Well-appearing patient with sudden changes in memory capabilities today. On my examination patient has NIH score of 0, there are no focal deficits. Patient was alert and oriented x3, denying any complaints. Laboratory work reviewed, no acute abnormalities identified. Urinalysis without any signs of urinary tract infection. CT brain negative for acute findings. Patient unable to obtain MRI due to presence of pacemaker. Patient and at bedside informed of all lab and imaging findings. Counseled close follow up with primary care physician. If symptoms are to abruptly worsen or if patient was to develop any other concerning symptoms he was instructed to return to the emergency department for repeat evaluation. Discharge Plan Departure Patient Disposition: Home Clinical Impression: Confusion Instructions: DI for Altered Mental Status Activity Restrictions/Additional Instructions: Your laboratory work, CT imaging, and urine test today were normal. Unfortunately we are not able to do an MRI at [facility] due to presence of a pacemaker. I recommend close follow up with your primary care doctor, particularly if the memory issues persist. Prescriptions: No Action Eliquis 5 mg tablet 5 mg PO BID Qty: 60 0RF Hold Instructions: 1/2 dosage for 8 days while taking Paxlovid multivitamin Tablet 1 tab PO DAILY PreserVision AREDS 7,160 unit- 113 mg-100 unit tablet 2 tab PO BID Rx Instructions: administer with AM and PM meals sotalol 80 mg tablet 120 mg PO BID Patient Comments: 01/08/20: dose increased per Dr Perez cardiology finasteride 5 mg tablet 5 mg PO DAILY Qty: 90 3RF lisinopril 20 mg tablet 20 mg PO DAILY Qty: 90 3RF Paxlovid 300 mg (150 mg x 2)-100 mg tablets,dose pack See Rx Instructions PO .COMPLEX Qty: 30 0RF Rx Instructions: take TWO 150 mg tablets of nirmatrelvir with ONE 100 mg tablet of ritonavir twice daily for 5 days PO tamsulosin 0.4 mg capsule 0.4 mg PO DAILY Qty: 90 1RF Hold Instructions: Hold for 8 days while taking Paxlovid omeprazole 20 mg capsule,delayed release(DR/EC) 20 mg PO DAILY sotalol 120 mg tablet 120 mg PO BID fluorouracil 5 % cream topical albuterol sulfate 90 mcg/actuation HFA aerosol inhaler 2 puff inhalation Q6H PRN (Reason: shortness of breath or wheezing) Qty: 6.7 1RF (DME) BreatheRite MDI Spacer Spacer See Rx Instructions .Route Qty: 1 0RF Rx Instructions: As directed nitroglycerin [Nitrostat] 0.4 MG tablet, sublingual 0.4 mg Sublingual PRN PRN (Reason: Chest Pain) (DME) Respironics RemStar CPAP Qty: 1 Dose Instruction: As directed Patient Comments: Pressure: 8-18 cmH2O DME: [employer] Rx Instructions: As directed Referrals: Polo Rodriguez MD [Primary Care Provider] - Stand Alone Forms: Patient Portal/API
== END 2024-03-10 19:08 | disposition home or self-care (01) ==
PROVIDERS: Emergency Medicine; Emergency Provider Emergency Medicine; PCP Family Medicine
DX: R41.0 Disorientation, unspecified (principal); Z79.01 Long term (current) use of anticoagulants; Z79.899 Other long term (current) drug therapy
CPT/HCPCS: 36415; 70450; 71045; 80053; 80305; 80320; 81003; 81015; 82140; 82962; 85025; 93005; 99284

== ENCOUNTER → 2024-04-07 15:09 | Outpatient (CLI) | payer MEDICARE, OTHER, SELFPAY ==
--- NOTE | 2024-04-07 | DI.RAD.S_ITS ---
PROCEDURE: XR CHEST 2V INDICATIONS: check for pacemaker location before MRI TECHNIQUE: 2 views of the chest were acquired. COMPARISON: [facility], , XR CHEST 1V, 03/10/2024, 16:56. FINDINGS: Heart, mediastinum and pulmonary vasculature: Heart is normal in size and configuration. Dual-chamber pacemaker leads in stable satisfactory position. No evidence of wire breakage. Mediastinum is unremarkable. Pulmonary vascular is normal. Lungs: Clear Pleural spaces: Small left pleural effusion is noted. There is a 3.6 cm pleural based density lateral left mid thorax which is likely loculated fluid. It was not present on the most recent study less than 1 month ago Bones and soft tissues: Normal IMPRESSION: Small left pleural effusion with loculated component the left midthorax Dictated by: Shaun Lezama M.D. on 04/08/2024 at 9:27 Approved by: Shaun Lezama M.D. on 04/08/2024 at 9:29
== END ==
PROVIDERS: PCP Family Medicine; Referring Provider Family Medicine; Visit Provider Family Medicine
DX: Z01.818 Encounter for other preprocedural examination (principal); J90 Pleural effusion, not elsewhere classified; Z95.0 Presence of cardiac pacemaker
CPT/HCPCS: 71046

== ENCOUNTER → 2024-04-15 09:50 | Outpatient (CLI) | payer MEDICARE, OTHER, SELFPAY ==
--- NOTE | 2024-04-15 09:51 | DI.CT.S_ITS ---
PROCEDURE: CT CHEST WO CON INDICATIONS: Abnormal CXR 04/07/24 TECHNIQUE: Noncontrast 5 mm thick sections acquired from the pulmonary apices to the posterior costophrenic angles. 1 mm lung window, 5 mm thick coronal and sagittal and 7 mm axial MIP reformats were then acquired. For radiation dose reduction, the following was used: automated exposure control, adjustment of mA and/or kV according to patient size. COMPARISON: [facility], CT, CT CHEST WO [facility], 10/24/2023, 10:30. FINDINGS: Image quality: Diagnostic. Lower Neck: No enlarged lymph nodes. Thyroid: No thyroid nodules which require sonographic follow up, per consensus guidelines. Axillae: No enlarged lymph nodes. Chest Wall: Left chest wall pacemaker. Bones: Multilevel degenerative changes of the spine. Lungs and Pleura: No pneumothorax or pleural effusions. Large bulla at the left lung base. Linear atelectasis and scarring within the left lower lobe and lingula. Mild tree-in-bud nodularity within the posterior right upper lobe is similar to prior. Stable 4 mm minor fissure nodule, likely an intrapulmonary lymph node. Stable micro nodularity along the anterior right middle lobe, some of which appear calcified. Mild centrilobular emphysematous changes. Again seen small area of fat density along the pleura of the posterolateral left upper lobe without suspicious soft tissue density. Heart: Heart size is calcifications prominent. No pericardial effusion. Thoracic Vessels: The aorta and pulmonary arteries demonstrate normal size. Atherosclerotic vascular Mediastinum and Rosa: No enlarged lymph nodes. Esophagus: No wall thickening. Small hiatal hernia. Upper Abdomen: Visualized upper abdomen solid organs and bowel loops appear normal. IMPRESSION: 1. No significant change compared to prior CT from 10/24/2023. 2. Linear atelectasis and scarring at the left lung base with prominent bulla. 3. Stable tree-in-bud nodularity within the posterior right upper lobe. Stable micro nodularity within the anterior right middle lobe, some which is calcified. 4. No suspicious pulmonary nodules. Dictated by: Jeffry Rubi M.D. on 04/15/2024 at 15:07 Approved by: Jeffry Rubi M.D. on 04/15/2024 at 15:15
== END ==
PROVIDERS: PCP Family Medicine; Referring Provider Family Medicine; Visit Provider Family Medicine
DX: J90 Pleural effusion, not elsewhere classified (principal)
CPT/HCPCS: 71250

== ENCOUNTER → 2024-05-01 10:23 | Outpatient (CLI) | payer MEDICARE, OTHER, SELFPAY ==
[2024-05-01 12:06] LABS: BUN Creatinine Ratio 33.8 (6-22); Blood Urea Nitrogen 26 mg/dL (9-20); Calcium 9.4 mg/dL (8.4-10.2); Carbon Dioxide 26 mmol/L (22-32); Chloride 105 mmol/L (98-107); Estimated Glomerular Filt Rate > 60 mL/min (>60); Glucose 91 mg/dL (80-110); HEMOLYSIS < 15 (0-50); Potassium 5.1 mmol/L (3.4-5.1); Sodium 137 mmol/L (137-145)
== END ==
PROVIDERS: PCP Family Medicine; Referring Provider Internal Medicine Cardiovascular Disease; Visit Provider Internal Medicine Cardiovascular Disease
DX: I48.0 Paroxysmal atrial fibrillation (principal); I51.9 Heart disease, unspecified
CPT/HCPCS: 36415; 80048

== ENCOUNTER → 2024-05-22 08:25 | Outpatient (CLI) | payer MEDICARE, OTHER, SELFPAY ==
--- NOTE | 2024-05-22 | DI.US.S_ITS ---
PROCEDURE: US CAROTID DOPPLER BI INDICATIONS: OCCLUSION AND STENOSIS OF CAROTID ARTERIES BILATERALLY TECHNIQUE: Color and pulse Doppler interrogation was performed of both carotid systems, with image documentation and velocity measurements. COMPARISON: [facility], , CAROTID ARTERY DOPPLER BILAT, 08/23/2017, 13:31. FINDINGS: Stenosis calculations are based on SRU (Society of Radiologists in Ultrasound) criteria. Right side: Brachial blood pressure: 143/83 mm Hg. Common carotid artery peak systolic velocity: 58 cm/sec. Internal carotid artery peak systolic velocity: 69 cm/sec. Internal carotid artery end diastolic velocity: 13 cm/sec. External carotid artery peak systolic velocity: 75 cm/sec. ICA/CCA peak systolic ratio: 1.2. Andrew scale imaging description: Mild plaque. Percent internal carotid artery stenosis: Less than 50% stenosis . Vertebral artery: Flow direction is antegrade. Left side: Brachial blood pressure: 136/80 mm Hg. Common carotid artery peak systolic velocity: 72 cm/sec. Internal carotid artery peak systolic velocity: 62 cm/sec. Internal carotid artery end diastolic velocity: 21 cm/sec. External carotid artery peak systolic velocity: 95 cm/sec. ICA/CCA peak systolic ratio: 0.9. Andrew scale imaging description: Mild plaque Percent internal carotid artery stenosis: Less than 50% stenosis . Vertebral artery: Flow direction is antegrade. IMPRESSION: Not significantly changed. 1. Right ICA: Less than 50 % stenosis. 2. Left ICA: Less than 50 % stenosis. 3. Antegrade flow in the bilateral vertebral arteries. Dictated by: Vadim Menjivar M.D. on 05/23/2024 at 10:05 Approved by: Vadim Menjivar M.D. on 05/23/2024 at 10:06
--- NOTE | 2024-05-22 | DI.ECHO.S_ITS ---
[facility] : : [id number] : : [place] : : [id number] : : Phone: [phone] Echocardiogram Report + + :Name: CLINTON LYNCH Study Date: 05/22/2024 Height: 71 in : :[facility] ReadingLocation: Weight: 236 lb : : Gender: Male BSA: 2.3 m2 : :: 1945 Age: 78 yrs BP: 152/94 mmHg: :Reason For Study: LV DYSFUNCTION : :Ordering Physician: DIANA, : :SEAN Performed By: Carmen Velasquez : :Referring: SEAN ORTIZ : + + Interpretation Summary The ejection fraction is estimated to be 55-60%. Diastolic parameters suggest probable normal left ventricular diastolic function and normal filling pressures. The left atrium is moderately dilated. The right ventricle is mildly dilated. The right ventricular systolic function is normal. The right atrium is mildly dilated. No significant valve abnormalities. Pulmonary artery pressures cannot be estimated because of the lack of a measurable TR jet velocity. Procedure: A two-dimensional transthoracic echocardiogram with color flow and Doppler was performed. The study quality was technically adequate. There is no prior echocardiogram noted for this patient. The patient was in sinus rhythm with heart rates between 60-65 bpm during the exam. Left Ventricle: The left ventricle is normal in size and wall thickness. The ejection fraction is estimated to be 55-60%. Diastolic parameters suggest probable normal left ventricular diastolic function and normal filling pressures. Right Ventricle: There is a pacemaker lead in the right ventricle. The right ventricle is mildly dilated. The right ventricular systolic function is normal. Atria: The left atrium is moderately dilated. There is a catheter/pacemaker lead seen in the right atrium. The right atrium is mildly dilated. There is no Doppler evidence for an interatrial shunt. Mitral Valve: The mitral valve is normal in structure and function. There is trace mitral regurgitation. Aortic Valve: The aortic valve opens well. There is no aortic valve stenosis. No aortic regurgitation is present. Tricuspid Valve: The tricuspid valve is normal in structure and function. There is trace tricuspid regurgitation. Pulmonary artery pressures cannot be estimated because of the lack of a measurable TR jet velocity. Pulmonic Valve: The pulmonic valve is not well visualized. There is no pulmonic valvular regurgitation. Great Vessels: The aortic root is normal size. The dimensions of the ascending aorta are normal. The inferior vena cava was not visualized. Pericardium/ Pleura There is no pericardial effusion. There is no pleural effusion. MMode/2D Measurements & Calculations LVIDd: 5.7 cm LVOT diam: 2.6 cm LVIDs: 3.5 cm Ao root diam: 3.6 cm FS: 38.5 % asc Aorta Diam: 3.5 cm EPSS: 0.89 cm Ao Arch Diam (Prox Trans): 3.3 cm IVSd: 0.58 cm LVPWd: 0.64 cm LV medina. diameter/BSA (cm/m^2): 2.5 LV sys. diameter/BSA (cm/m^2): 1.6 LA A2 area: 27.5 cm2 RA long axis: 5.8 cm LA A4 area: 25.9 cm2 RA area: 23.9 cm2 LA length (vol): 6.2 cm RA vol: 83.4 ml LA vol: 97.0 ml RA : 36.9 ml/m2 LA vol index: 42.9 ml/m2 RVD1 (basal): 4.2 cm RVD2 (mid): 3.2 cm TAPSE: 2.2 cm Doppler Measurements & Calculations Ao V2 max: 160.1 cm/sec LVOT Max Fidel: 82.6 cm/sec Ao V2 mean: 115.8 cm/sec LV V1 max P.7 mmHg Ao max P.2 mmHg LV V1 VTI: 18.6 cm Ao mean P.9 mmHg BRIAN(I,D): 2.9 cm2 Ao V2 VTI: 35.3 cm BRIAN(V,D): 2.8 cm2 sev ratio: 0.53 BRIAN indexed to BSA (cm^2/m^2): 1.3 MV E max fidel: 73.2 cm/sec TR max fidel: 277.0 cm/sec MV A max fidel: 55.4 cm/sec TR max P.7 mmHg MV E/A: 1.3 PA V2 max: 70.2 cm/sec Med Peak E' Fidel: 7.3 cm/sec PA V2 mean: 51.7 cm/sec E/E' med: 10.0 PA mean P.2 mmHg Lat Peak E' Fidel: 11.2 cm/sec E/E' lat: 6.5 E/e' average: 8.3 MV dec time: 0.17 sec SV(LVOT): 100.8 ml Reading Physician:11:01 AM
== END ==
PROVIDERS: PCP Family Medicine; Referring Provider Internal Medicine Cardiovascular Disease; Visit Provider Internal Medicine Cardiovascular Disease
DX: I65.23 Occlusion and stenosis of bilateral carotid arteries (principal); I27.81 Cor pulmonale (chronic); I51.9 Heart disease, unspecified
CPT/HCPCS: 93306; 93880

== ENCOUNTER 2024-06-18 08:30 | Outpatient (RCR) | payer MEDICARE, OTHER, SELFPAY | END 2024-06-18 10:30 | LOC: PUL 08:30 | PROVIDERS: PCP Family Medicine; Referring Provider Internal Medicine; Visit Provider Internal Medicine | DX: J44.89 Other specified chronic obstructive pulmonary disease (principal); R06.02 Shortness of breath | CPT/HCPCS: G0237; G0238 ==

== ENCOUNTER 2024-09-18 10:49 | Emergency (ER) | payer MEDICARE, OTHER, SELFPAY ==
--- NOTE | 2024-09-18 11:01 | DI.RAD.S_ITS ---
PROCEDURE: XR CHEST 2V INDICATIONS: Small pneumothorax on outpatient CT scan TECHNIQUE: 2 views of the chest were acquired. COMPARISON: [facility], CT, CT CHEST ABDOMEN PELVIS WITH CONTRAST, 09/16/2024, 14:03. [facility], CT, CT SOFT TISSUE NECK WITH CONTRAST, 09/16/2024, 14:03. [facility], CR, XR CHEST 2V, 04/07/2024, 15:13. FINDINGS: Surgical changes and devices: Left chest wall pacemaker leads are in the region of right atrium and right ventricle Lungs and pleura: Slightly increased radiolucency in left upper lung field compared to the left side and may represent patient's known tiny medial and anterior left upper lung field pneumothorax. Right lung is clear. Mediastinum: Mediastinal contours are normal. Heart size is enlarged. Bones and chest wall: No suspicious bony abnormalities. Soft tissues appear unremarkable. IMPRESSION: Questionable tiny pneumothorax in left upper lung field better evaluated on previous CT chest study. No large pneumothorax. No pleural effusion or definite focal infiltrate. Dictated by: Yovani Garza M.D. on 09/18/2024 at 11:27 Approved by: Yovani Garza M.D. on 09/18/2024 at 11:28
[2024-09-18 11:08] VITALS: PULSE 63; RESP 11; O2SAT 99
[2024-09-18 11:10] VITALS: BP 181/92; PULSE 61; RESP 16; TEMP 36.5; O2SAT 98; BMI 29.4
[2024-09-18 11:16] VITALS: BP 148/79; PULSE 72; O2SAT 96
[2024-09-18 11:30] VITALS: BP 144/74; PULSE 60; RESP 10; O2SAT 96
--- NOTE | 2024-09-18 12:00 | PC.NURSE ---
Was told he had a pneumo--unk how big according to pt.
--- NOTE | 2024-09-18 12:19 | ED_ITS ---
HPI - SOB/Dyspnea <Kari Gonzalez PA-C - Last Filed: 09/18/24 13:36> General Chief Complaint: Shortness of Breath/Dyspnea Stated Complaint: Per patient, air pocket in lung Time Seen by Provider: 09/18/24 11:01 History of Present Illness HPI Narrative: Mr. Terrell is a very pleasant 79-year-old male with a past medical history of melanoma, COPD, AFib with pacemaker on Eliquis, GERD, VADIM who presents to the emergency department for further evaluation of an outpatient CT scan revealing a small left-sided pneumothorax. Patient states he had his annual CT scan of his chest with IV contrast given his past history of melanoma skin cancer. This was performed at [facility] on Saturday. He was called and informed that his CT scan revealed a left-sided pneumothorax and he should seek further evaluation. He was told he should not fly. However he plans to fly on Saturday for a birthday celebration. Comes to the emergency department for further evaluation of no pneumothorax. He denies any chest pain, shortness of breath, fevers, chills, coughing or any symptoms. He feels at his baseline. Reports that he does suffer with chronic shortness of breath but this is not changed. Related Data Home Medications Medication Instructions Recorded Confirmed Respironics RemStar CPAP #1 ea 08/01/18 05/20/24 multivitamin 1 tab PO DAILY 04/18/21 05/20/24 vitamins A,C,U-bmhy-gnhlhx 2,148 2 tab PO BID 07/31/21 05/20/24 mcg-113 mg-45 mg-17.4 mg tablet (PreserVision AREDS) omeprazole 20 mg capsule,delayed 20 mg PO DAILY 05/16/23 05/20/24 release fluorouracil 5 % topical cream applic topical 08/08/23 05/20/24 sotalol 120 mg tablet 120 mg PO BID 08/08/23 05/20/24 nitroglycerin 0.4 mg sublingual 0.4 mg sublingual PRN PRN Chest 09/05/23 05/20/24 tablet (Nitrostat) Pain lisinopril 30 mg tablet 30 mg PO DAILY 05/20/24 05/20/24 spironolactone 25 mg tablet 12.5 mg PO DAILY 05/20/24 05/20/24 Previous Rx's Medication Instructions Recorded apixaban 5 mg tablet (Eliquis) 5 mg PO BID #60 tabs 03/28/20 albuterol sulfate 90 mcg/actuation 2 puff inhalation Q6H PRN 08/08/23 aerosol inhaler shortness of breath or wheezing #6.7 grams inhalational spacing device #1 ea 08/08/23 (BreatheRite MDI Spacer) finasteride 5 mg tablet 5 mg PO DAILY #90 tabs 06/03/24 tamsulosin 0.4 mg capsule 0.4 mg PO DAILY #90 caps 08/25/24 Allergies Allergy/AdvReac Type Severity Reaction Status Date / Time No Known Drug Allergies Allergy Verified 09/18/24 11:09 Review of Systems <Kari Gonzalez PA-C - Last Filed: 09/18/24 13:36> Review of Systems ROS Unobtainable: All systems reviewed & are unremarkable except as noted in HPI and below Patient History <Kari Gonzalez PA-C - Last Filed: 09/18/24 13:36> Medical History Melanoma Kidney cysts Anticoagulated on Coumadin BPH (benign prostatic hyperplasia) Prostatitis 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) Knee pain (1995) BCC (basal cell carcinoma of skin) Mumps (~1950) Measles (~1950) Herpes (1976) Chicken pox (1951) GERD (gastroesophageal reflux disease) (~1994) Tachycardia-bradycardia syndrome Atrial fibrillation (10/2014) Obstructive sleep apnea of adult Snoring Prostatism (06/28/16) Post-operative pain Surgical History History of squamous cell carcinoma excision (08/14/17) History of left heart catheterization (03/2016) History of right knee surgery (06/26/07) Status post placement of cardiac pacemaker (12/13/15) Status post surgical manipulation of knee joint (07/26/16) Anesthesia Status post Mohs surgery for basal cell carcinoma (2004) History of colonoscopy (2004) History of total left knee replacement (TKR) (04/23/16) History of esophagogastroduodenoscopy (EGD) (10/20/10) Status post arthroscopy (04/23/16) Status post colonoscopy Status post arthroscopy (~2002) Status post arthroscopy (~1996) History of esophagogastroduodenoscopy (EGD) (11/11/12) Status post biopsy (10/20/10) Family History Father Cancer Lung cancer Grandfather Cancer Cancer of kidney Mother Atherosclerosis AAA (abdominal aortic aneurysm) Sister Age: 77 Obese Chronic knee pain Chronic foot pain Brother No problems noted. Grandmother Dementia Grandfather No problems noted. Grandmother Brain tumor Sister Fibromyalgia Other CAD (coronary artery disease) Hypertension Social History marital status: details: elvia Romeo, lives in [place] household members: spouse lives independently: Yes caregiver/support person: No housing: house Smoking Status: Former smoker Tobacco: How many years used: 8 alcohol intake: current substance use type: does not use Smoking Status: Former smoker alcohol intake frequency: 0-2 drinks per day Alcohol type: wine and hard liquor Exam <Kari Gonzalez PA-C - Last Filed: 09/18/24 13:36> Narrative Exam Narrative: GENERAL: 83 year old patient appears stated age. Well-developed patient, in no acute distress. HEAD: Atraumatic. Normocephalic. NECK: Trachea midline. Cervical ROM intact. CARDIOVASCULAR: Regular rate and rhythm. RESPIRATORY: ?Nonlabored respirations. ?Speaking in clear, full sentences. ?Clear to auscultation. Breath sounds equal bilaterally. No wheezes, rales, or rhonchi. ? NEURO: AOx3. ?Clear speech. ?Moves all 4 extremities appropriately. SKIN: No rash or erythema of visible areas Initial Vital Signs Initial Vital Signs: Vital Signs Pulse Rate 63 09/18/24 11:08 Respiratory Rate 11 L 09/18/24 11:08 Pulse Oximetry 99 09/18/24 11:08 <Blaine Gastelum MD - Last Filed: 09/18/24 20:55> Initial Vital Signs Initial Vital Signs: Vital Signs Pulse Rate 63 09/18/24 11:08 Respiratory Rate 11 L 09/18/24 11:08 Pulse Oximetry 99 09/18/24 11:08 Course <Kari Gonzalez PA-C - Last Filed: 09/18/24 13:36> Orders Ordered: ED Orders 09/18/24 11:01 XR chest 2V Stat Consultations Consultation #1: Discussed case with surgeon on-call Dr. Betancourt. He reviewed the patient's chest x-ray, states that pneumothorax extremely tiny barely noticeable. Patient does not need chest tube or any intervention. This will likely heal on its own. Patient should not fly for 4-6 weeks, should have repeat chest x-ray with PCP in 4 weeks. Time: 12:45 Vital Signs Vital signs: Vital Signs - 8 hr 09/18/24 13:45 Pulse Rate 61 Respiratory Rate 16 Blood Pressure 156/71 H Pulse Oximetry 94 Oxygen Delivery Method Room Air <Blaine Gastelum MD - Last Filed: 09/18/24 20:55> Orders Ordered: ED Orders 09/18/24 11:01 XR chest 2V Stat Vital Signs Vital signs: Vital Signs - 8 hr 09/18/24 13:45 Pulse Rate 61 Respiratory Rate 16 Blood Pressure 156/71 H Pulse Oximetry 94 Oxygen Delivery Method Room Air MDM - SOB/Dyspnea <Kari Gonzalez PA-C - Last Filed: 09/18/24 13:36> Medical Records Attestation: I reviewed the patient's medical records. Imaging Data Chest x-ray: Radiologist's Impression: PROCEDURE: XR CHEST 2V INDICATIONS: Small pneumothorax on outpatient CT scan TECHNIQUE: 2 views of the chest were acquired. COMPARISON: [facility], CT, CT CHEST ABDOMEN PELVIS WITH CONTRAST, 09/16/2024, 14:03. [facility], CT, CT SOFT TISSUE NECK WITH CONTRAST, 09/16/2024, 14:03. [facility], CR, XR CHEST 2V, 04/07/2024, 15:13. FINDINGS: Surgical changes and devices: Left chest wall pacemaker leads are in the region of right atrium and right ventricle Lungs and pleura: Slightly increased radiolucency in left upper lung field compared to the left side and may represent patient's known tiny medial and anterior left upper lung field pneumothorax. Right lung is clear. Mediastinum: Mediastinal contours are normal. Heart size is enlarged. Bones and chest wall: No suspicious bony abnormalities. Soft tissues appear unremarkable. IMPRESSION: Questionable tiny pneumothorax in left upper lung field better evaluated on previous CT chest study. No large pneumothorax. No pleural effusion or definite focal infiltrate. MDM Narrative Medical decision making narrative: 79-year-old male with a past medical history of melanoma, COPD, AFib with pacemaker on Eliquis, GERD, VADIM who presents to the emergency department for further evaluation of an outpatient CT scan revealing a small left-sided pneumothorax. Differential diagnosis includes but is not limited to spontaneous pneumothorax, pneumonia, pleural effusion, etc. On exam the patient is in no acute distress, nontoxic appearing, vital signs within normal limits. He has not experiencing any chest pain, shortness of breath, or hypoxia. Chest x-ray was obtained in the emergency department revealing questionable tiny pneumothorax and left upper lung field. No large pneumothorax. No pleural effusion or definite focal infiltrate. I called and discussed the case with the on-call general surgeon, Dr. Betancourt. No in tervention is recommended at this time, this is a occult pneumothorax that will likely heal spontaneously. Recommended no flying for the next 4-6 weeks, repeat chest x-ray with PCP in 4 weeks. Extensively discussed all these findings with patient and his . They verbalized understanding of all information agreeable with the plan. X-ray disc provided to patient. He is stable for discharge home. Discharge Plan Departure Patient Disposition: Home Clinical Impression: Pneumothorax on left Instructions: DI for Pneumothorax Activity Restrictions/Additional Instructions: Thank you for coming to the emergency department. Today you were evaluated for a pneumothorax that was identified on an outpatient CT scan. We repeated your chest x-ray today which shows a questionable tiny pneumothorax in the left upper lung abbott. I discussed her case with the on-call surgeon Dr. Betancourt. At this time you do not need a chest tube or any intervention. You should avoid flying for the next 4-6 weeks. You should have a repeat chest x-ray in about 4 weeks' time with your primary care doctor for further evaluation. Please return to the emergency department if you develop any new or worsening symptoms such as shortness of breath, chest pain, or any other concerns. Please follow up with your primary care doctor within the next 2-3 days for ER follow-up. (If you do not have a PCP you can call [phone]. ?to schedule an appointment with an [facility] Primary Care Provider) IF YOU DEVELOP ANY NEW OR WORSENING SYMPTOMS, RETURN TO THE ER! Please read the attached instructions, they highlight more specific treatments and interventions for you at home. Thank you for letting me participate in your care, Kari Gonzalez PA-C Prescriptions: No Action Eliquis 5 mg tablet 5 mg PO BID Qty: 60 0RF Hold Instructions: 1/2 dosage for 8 days while taking Paxlovid multivitamin Tablet 1 tab PO DAILY PreserVision AREDS 7,160 unit- 113 mg-100 unit tablet 2 tab PO BID Rx Instructions: administer with AM and PM meals finasteride 5 mg tablet 5 mg PO DAILY Qty: 90 3RF tamsulosin 0.4 mg capsule 0.4 mg PO DAILY Qty: 90 0RF Hold Instructions: Hold for 8 days while taking Paxlovid omeprazole 20 mg capsule,delayed release(DR/EC) 20 mg PO DAILY sotalol 120 mg tablet 120 mg PO BID fluorouracil 5 % cream topical albuterol sulfate 90 mcg/actuation HFA aerosol inhaler 2 puff inhalation Q6H PRN (Reason: shortness of breath or wheezing) Qty: 6.7 1RF (DME) BreatheRite MDI Spacer Spacer See Rx Instructions .Route Qty: 1 0RF Rx Instructions: As directed nitroglycerin [Nitrostat] 0.4 MG tablet, sublingual 0.4 mg Sublingual PRN PRN (Reason: Chest Pain) lisinopril 30 mg tablet 30 mg PO DAILY spironolactone 25 mg tablet 12.5 mg PO DAILY (DME) Respironics RemStar CPAP Qty: 1 Dose Instruction: As directed Patient Comments: Pressure: 8-18 cmH2O DME: [employer] Rx Instructions: As directed Referrals: Polo Rodriguez MD [Primary Care Provider] - Stand Alone Forms: Patient Portal/API/Survey ED Sign-out <Blaine Gastelum MD - Last Filed: 09/18/24 20:55> Cosign ED Attending Cosluisaature Attestation: I was immediately available in the department for consultation. This documentation has been reviewed and I agree with assessment and plan. Supervised by Blaine Gastelum MD
[2024-09-18 13:45] VITALS: BP 156/71; PULSE 61; RESP 16; O2SAT 94
== END 2024-09-18 13:45 | disposition home or self-care (01) ==
PROVIDERS: Emergency Provider Physician Assistant; PCP Family Medicine
DX: J93.9 Pneumothorax, unspecified (principal); Z85.820 Personal history of malignant melanoma of skin
CPT/HCPCS: 71046; 99281; 99283

== ENCOUNTER → 2024-10-05 13:37 | Outpatient (CLI) | payer MEDICARE, OTHER, SELFPAY ==
[2024-10-05 14:25] LABS: Add Manual Diff / Slide Review NO; Basophils Absolute Auto 100 /uL (0-100); Basophils Percent Auto 0.8 % (0-2); Eosinophils Absolute Auto 100 /uL (0-450); Eosinophils Percent Auto 1.8 % (2-4); Hematocrit 44.6 % (41-53); Lymphocytes Absolute Auto 1000 /uL (1100-4500); Lymphocytes Percent Auto 14.9 % (25-40); Mean Corpuscular HGB Conc 33.6 % (30-36); Mean Corpuscular Hemoglobin 29.2 PG (26-34); Mean Corpuscular Volume 86.9 fL (80-100); Monocytes Absolute Auto 700 /uL (0-900); Monocytes Percent Auto 10.7 % (3-14); Neutrophils Absolute Auto 4700 /uL (1500-7000); Neutrophils Percent Auto 71.8 % (50-75); Platelet Count 197 X10^3/uL (150-400); Red Blood Cell Count 5.13 X10^6/uL (4.5-5.9); Red Cell Distribution Width 14.7 % (11.6-14.8); White Blood Cell Count 6.5 X10^3/uL (4.5-11.0)
[2024-10-05 14:45] LABS: Alanine Aminotransferase 24 IU/L (<50); Albumin 4.5 g/dL (3.5-5.0); Albumin Globulin Ratio 1.5 (1.0-2.8); Alkaline Phosphatase 79 U/L (38-126); Aspartate Aminotransferase 23 IU/L (17-59); BUN Creatinine Ratio 29.8 (6-22); Bilirubin Total 1.3 mg/dL (0.2-1.3); Blood Urea Nitrogen 25 mg/dL (9-20); Calcium 9.6 mg/dL (8.4-10.2); Carbon Dioxide 26 mmol/L (22-32); Chloride 104 mmol/L (98-107); Estimated Glomerular Filt Rate > 60 mL/min (>60); Glucose 85 mg/dL (80-110); HEMOLYSIS < 15 (0-50); Lactate Dehydrogenase 177 U/L (120-246); Sodium 141 mmol/L (137-145); Total Protein 7.5 g/dL (6.3-8.2)
== END ==
PROVIDERS: PCP Family Medicine; Visit Provider Physician Assistant
DX: C43.30 Malignant melanoma of unspecified part of face (principal)
CPT/HCPCS: 36415; 80048; 80076; 83615; 85025

== ENCOUNTER → 2024-10-14 09:57 | Outpatient (CLI) | payer MEDICARE, OTHER, SELFPAY ==
--- NOTE | 2024-10-14 09:59 | DI.RAD.S_ITS ---
PROCEDURE: XR CHEST 2V INDICATIONS: fu left pneumothorax TECHNIQUE: 2 views of the chest were acquired. COMPARISON: [facility], CR, XR CHEST 2V, 09/18/2024, 11:02. FINDINGS: Heart, mediastinum and pulmonary vascular: Heart is normal in size and configuration. Pacemaker leads in stable satisfactory position without complication. Mediastinum is unremarkable. Pulmonary vascular is normal. Lungs: Minor bibasilar atelectasis noted. Pleural spaces: Normal-no effusions or pneumothorax. IMPRESSION: Interval resolution of left basilar pneumothorax since nearly exam 1 month prior Dictated by: Shaun Lezama M.D. on 10/15/2024 at 11:09 Approved by: Shaun Lezama M.D. on 10/15/2024 at 11:11
== END ==
PROVIDERS: PCP Family Medicine; Referring Provider Internal Medicine; Visit Provider Internal Medicine
DX: J93.9 Pneumothorax, unspecified (principal)
CPT/HCPCS: 71046

== ENCOUNTER 2025-04-27 15:29 | Emergency (ER) | payer MEDICARE, OTHER, SELFPAY ==
[2025-04-27 16:04] VITALS: BP 115/64; PULSE 64; RESP 18; TEMP 37; O2SAT 95; BMI 30.9
--- NOTE | 2025-04-27 16:14 | DI.RAD.S_ITS ---
PROCEDURE: XR KNEE RT 3V INDICATIONS: fall/bruising/swelling/on thinners TECHNIQUE: 3 views of the knee were acquired. COMPARISON: [facility], , KNEE 1-2 VIEWS LEFT, 04/23/2016, 15:35. FINDINGS: Bones: There is anatomic alignment. There is moderate diffuse osteopenia. There is medial hemiarthroplasty, with probable small joint effusion. There is mild degenerative disease in the patellofemoral and lateral compartments. Soft tissues: No joint effusion. No suspicious soft tissue calcifications. IMPRESSION: Postoperative and degenerative changes, no definite acute osseous lesion in this osteopenic patient. Dictated by: Norman Bojorquez M.D. on 04/27/2025 at 17:03 Approved by: Norman Bojorquez M.D. on 04/27/2025 at 17:04
--- NOTE | 2025-04-27 16:18 | DI.CT.S_ITS ---
PROCEDURE: CT HEAD/BRAIN WO CON INDICATIONS: fall/hit head/on thinners TECHNIQUE: Noncontrast 4.5 mm thick angled axial sections acquired from the foramen magnum to the vertex, with coronal and sagittal reformats. For radiation dose reduction, the following was used: automated exposure control, adjustment of mA and/or kV according to patient size. COMPARISON: [facility], CT, CT HEAD/BRAIN WO CON, 03/10/2024, 16:44. FINDINGS: Image quality: Diagnostic. CSF spaces: Basal cisterns are patent. No extra-axial fluid collections. The ventricles are symmetric in size and shape. Brain: No intracranial bleeds or mass effect. There is cerebral volume loss, with resultant ventricular and sulcal prominence. There are periventricular and deep white matter chronic small vessel ischemic changes. There is intracranial internal carotid artery atherosclerosis. Skull and face: Calvarium and visualized facial bones appear intact, without suspicious lesions. Sinuses: Visualized sinuses and mastoids are clear. IMPRESSION: No acute intracranial pathology. Dictated by: Kyle Jaramillo M.D. on 04/27/2025 at 16:42 Approved by: Kyle Jaramillo M.D. on 04/27/2025 at 16:43
--- NOTE | 2025-04-27 16:23 | ED.FALL ---
HPI - Fall General Chief Complaint: Trauma Stated Complaint: fell out of bed, hit head, R knee abrasion Time Seen by Provider: 04/27/25 16:22 Source: patient Mode of arrival: Ambulatory History of Present Illness HPI Narrative: 79-year-old male patient with a history of atrial fibrillation/anticoagulation, hypertension, GERD, BPH and obstructive sleep apnea who fell out of bed 2 days ago landing on his face and hurting his right knee. He is mainly concerned about swelling and pain in the right knee. He has some bruising on the face. He is on anticoagulants for atrial fibrillation. No headache. Related Data Home Medications ?Medication ?Instructions ?Recorded ?Confirmed Respironics RemStar CPAP #1 ea 08/01/18 04/14/25 multivitamin 1 tab PO DAILY 04/18/21 04/14/25 vitamins A,C,L-qpaq-viqlrd 2,148 2 tab PO BID 07/31/21 04/14/25 mcg-113 mg-45 mg-17.4 mg tablet (PreserVision AREDS) omeprazole 20 mg capsule,delayed 20 mg PO DAILY 05/16/23 04/14/25 release fluorouracil 5 % topical cream applic topical 08/08/23 04/14/25 sotalol 120 mg tablet 120 mg PO BID 08/08/23 04/14/25 nitroglycerin 0.4 mg sublingual 0.4 mg sublingual PRN PRN Chest 09/05/23 04/14/25 tablet (Nitrostat) Pain lisinopril 30 mg tablet 30 mg PO DAILY 05/20/24 04/14/25 spironolactone 25 mg tablet 12.5 mg PO DAILY 05/20/24 04/14/25 Previous Rx's ?Medication ?Instructions ?Recorded apixaban 5 mg tablet (Eliquis) 5 mg PO BID #60 tabs 03/28/20 albuterol sulfate 90 mcg/actuation 2 puff inhalation Q6H PRN 08/08/23 aerosol inhaler shortness of breath or wheezing #6.7 grams inhalational spacing device #1 ea 08/08/23 (BreatheRite MDI Spacer) finasteride 5 mg tablet 5 mg PO DAILY #90 tabs 06/03/24 tamsulosin 0.4 mg capsule 0.4 mg PO DAILY #90 caps 02/12/25 cephalexin 500 mg capsule 500 mg PO TID 8 days #24 caps 04/27/25 Allergies Allergy/AdvReac Type Severity Reaction Status Date / Time No Known Drug Allergies Allergy Verified 04/14/25 08:46 Review of Systems Review of Systems ROS Unobtainable: All systems reviewed & are unremarkable except as noted in HPI and below ENT Ears, Nose, Mouth, and Throat: Reports as per HPI Musculoskeletal Musculoskeletal: Reports as per HPI Patient History Medical History Melanoma Kidney cysts Anticoagulated on Coumadin BPH (benign prostatic hyperplasia) Prostatitis 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) Knee pain (1995) BCC (basal cell carcinoma of skin) Mumps (~1949) Measles (~1949) Herpes (1976) Chicken pox (1951) GERD (gastroesophageal reflux disease) (~1994) Tachycardia-bradycardia syndrome Atrial fibrillation (10/2014) Obstructive sleep apnea of adult Snoring Prostatism (06/28/16) Post-operative pain Surgical History History of squamous cell carcinoma excision (08/14/17) History of left heart catheterization (03/2016) History of right knee surgery (06/26/07) Status post placement of cardiac pacemaker (12/13/15) Status post surgical manipulation of knee joint (07/26/16) Anesthesia Status post Mohs surgery for basal cell carcinoma (2004) History of colonoscopy (2004) History of total left knee replacement (TKR) (04/23/16) History of esophagogastroduodenoscopy (EGD) (10/20/10) Status post arthroscopy (04/23/16) Status post colonoscopy Status post arthroscopy (~2002) Status post arthroscopy (~1996) History of esophagogastroduodenoscopy (EGD) (11/11/12) Status post biopsy (10/20/10) Family History Father Cancer Lung cancer Grandfather Cancer Cancer of kidney Mother Atherosclerosis AAA (abdominal aortic aneurysm) Sister Age: 78 Obese Chronic knee pain Chronic foot pain Brother No problems noted. Grandmother Dementia Grandfather No problems noted. Grandmother Brain tumor Sister Fibromyalgia Other CAD (coronary artery disease) Hypertension Social History marital status: details: elvia Romeo, lives in [place] household members: spouse lives independently: Yes caregiver/support person: No housing: house Smoking Status: Never smoker Tobacco: How many years used: 8 alcohol intake: current substance use type: does not use Smoking Status: Never smoker alcohol intake frequency: 0-2 drinks per day Alcohol type: wine and hard liquor Exam Narrative Exam Narrative: General: Alert and conversant. No distress. Appears well nourished and well hydrated Craniofacial: Contusion over the left face but no bony tenderness. Otherwise No evidence of trauma. Nontender and no swelling. Eyes: PERRLA EOMI conjunctiva clear HEENT: Oropharynx clear with no swelling, exudate or asymmetry of the pharynx. Nares clear. No sinus tenderness Neck: No tenderness or adenopathy. No meningismus. No JVD Lungs: Clear to auscultation with good air movement. No wheezing, rales or rhonchi. No respiratory distress Musculoskeletal: Right knee has effusion, swelling, ecchymosis and a blood blister with no bony tenderness. There is slight erythema of the lateral right lower leg. No instability present. Otherwise Exam of the extremities, axial spine and ribcage reveals no deformity, bony tenderness or swelling. Range of motion intact Neuro: Alert and oriented. Cranial nerves, motor, sensory and cerebellar all grossly intact. No focal deficit Skin: Warm and normal color. No rashes Psychological: Normal affect and interaction. No evidence of delusion or psychosis. Normal mood. Initial Vital Signs Initial Vital Signs: Vital Signs Temperature 98.6 F 04/27/25 16:04 Pulse Rate 64 04/27/25 16:04 Respiratory Rate 18 04/27/25 16:04 Blood Pressure 115/64 04/27/25 16:04 Pulse Oximetry 95 04/27/25 16:04 Oxygen Delivery Method Room Air 04/27/25 16:04 Course Orders Ordered: ED Orders 04/27/25 16:14 XR knee RT 3V Stat 04/27/25 16:18 CT head/brain wo con Stat Discontinued Medications Bacitracin (Bacitracin Oint 0.9 Gm Pckt) 1 applic TOP NOW ONE Stop: 04/27/25 20:25 Cephalexin HCl (Cephalexin 250 Mg Capsule) 500 mg PO NOW ONE Stop: 04/27/25 20:10 Last Admin: 04/27/25 20:21 Dose: 500 mg Documented By: DEONTE Vital Signs Vital signs: Vital Signs - 8 hr 04/27/25 18:38 04/27/25 18:43 04/27/25 18:43 Pulse Rate 63 60 Respiratory Rate 18 Blood Pressure 142/71 H Pulse Oximetry 96 98 Oxygen Delivery Method Room Air 04/27/25 19:00 04/27/25 19:00 04/27/25 19:30 Pulse Rate 64 60 Respiratory Rate 20 19 Blood Pressure 147/79 H Pulse Oximetry 98 96 Oxygen Delivery Method 04/27/25 20:00 04/27/25 20:00 Pulse Rate 60 Respiratory Rate 14 Blood Pressure 102/59 L Pulse Oximetry 94 Oxygen Delivery Method MDM - Fall Imaging Data CT scan - head: Radiologist's Impression: Impression: No acute intracranial pathology. Right knee radiographs: My Impression: No fracture or malalignment. [facility] Narrative Medical decision making narrative: Patient had a fall with re-injury of the right knee with no fracture. Appears to has a sprain and contusion possible internal derangement based on effusion. Minimal discomfort. He also has some erythema and warmth on the lateral right lower leg indicating possible soft tissue infection. Head scan is negative. Plan will be elevation, ice packs and Zac wrap. Cephalexin course for possible soft tissue infection of the right lower leg. He is to follow up with his primary care provider within 3 days for reassessment. Return to the ER if worse Discharge Plan Departure Patient Disposition: Home Clinical Impression: Contusion of face, Right knee sprain, Contusion of knee, right Instructions: Contusion, Knee Sprain Activity Restrictions/Additional Instructions: Assessment: Accidental fall with facial contusion and right knee sprain and possible internal injury given the effusion and swelling. There is also contusion and possible early skin infection distal to the knee injury. Plan: Cold packs intermittently. Zac wrap and elevation. [id number] pain medication. Keflex prescription for possible right lower leg cellulitis. Follow up with primary care for recheck within the next week. Return to the ER if worse Prescriptions: New cephalexin 500 mg capsule 500 mg PO TID 8 Days Qty: 24 0RF No Action Eliquis 5 mg tablet 5 mg PO BID Qty: 60 0RF multivitamin Tablet 1 tab PO DAILY PreserVision AREDS 7,160 unit- 113 mg-100 unit tablet 2 tab PO BID Rx Instructions: administer with AM and PM meals finasteride 5 mg tablet 5 mg PO DAILY Qty: 90 3RF tamsulosin 0.4 mg capsule 0.4 mg PO DAILY Qty: 90 1RF omeprazole 20 mg capsule,delayed release(DR/EC) 20 mg PO DAILY sotalol 120 mg tablet 120 mg PO BID fluorouracil 5 % cream topical albuterol sulfate 90 mcg/actuation HFA aerosol inhaler 2 puff inhalation Q6H PRN (Reason: shortness of breath or wheezing) Qty: 6.7 1RF (DME) BreatheRite MDI Spacer Spacer See Rx Instructions .Route Qty: 1 0RF Rx Instructions: As directed nitroglycerin [Nitrostat] 0.4 MG tablet, sublingual 0.4 mg Sublingual PRN PRN (Reason: Chest Pain) lisinopril 30 mg tablet 30 mg PO DAILY spironolactone 25 mg tablet 12.5 mg PO DAILY (DME) Respironics RemStar CPAP Qty: 1 Dose Instruction: As directed Patient Comments: Pressure: 8-18 cmH2O DME: [employer] Rx Instructions: As directed Referrals: Polo Rodriguez MD [Primary Care Provider, Family Practice] Stand Alone Forms: Patient Portal/API
[2025-04-27 18:38] VITALS: PULSE 63; O2SAT 96
[2025-04-27 18:43] VITALS: BP 142/71; PULSE 60; RESP 18; O2SAT 98
[2025-04-27 19:00] VITALS: BP 147/79; PULSE 64; RESP 20; O2SAT 98
[2025-04-27 19:30] VITALS: PULSE 60; RESP 19; O2SAT 96
[2025-04-27 20:00] VITALS: BP 102/59; PULSE 60; RESP 14; O2SAT 94
== END 2025-04-27 20:40 | disposition home or self-care (01) ==
PROVIDERS: Emergency Provider Emergency Medicine; PCP Family Medicine
DX: S00.83XA Contusion of other part of head, initial encounter (principal); S83.91XA Sprain of unspecified site of right knee, initial encounter; S80.01XA Contusion of right knee, initial encounter; W06.XXXA Fall from bed, initial encounter; Z79.01 Long term (current) use of anticoagulants
CPT/HCPCS: 70450; 73562; 99284

== ENCOUNTER → 2025-05-03 08:51 | Outpatient (CLI) | payer MEDICARE, OTHER, SELFPAY ==
--- NOTE | 2025-05-03 08:52 | DI.RAD.S_ITS ---
PROCEDURE: XR KNEE RT 3V INDICATIONS: knee injury TECHNIQUE: 3 views of the knee were acquired. COMPARISON: [facility], CR, XR KNEE RT 3V, 04/27/2025, 16:19. FINDINGS: Bones: Existing medial compartment arthroplasty. Hardware is in expected position without evidence of complication. Surrounding degenerative changes including small osteophytes, osseous demineralization, and trace chondrocalcinosis. No fractures or dislocations. No suspicious bony lesions. Soft tissues: Sub patellar soft tissue swelling. No joint effusion. No suspicious soft tissue calcifications. IMPRESSION: No acute bony abnormality or significant effusion. Stable medial compartment arthroplasty. Degenerative changes redemonstrated. Dictated by: Pari CANCHOLA Interpreted: Yovani Garza MD on 05/03/2025 at 9:35 Transcribed by: CANDICE on 05/03/2025 at 9:38 Approved by: Yovani Garza M.D. on 05/03/2025 at 17:00
== END ==
PROVIDERS: PCP Family Medicine; Referring Provider Family Medicine; Visit Provider Family Medicine
DX: S80.01XA Contusion of right knee, initial encounter (principal); S83.91XA Sprain of unspecified site of right knee, initial encounter; M79.89 Other specified soft tissue disorders; Z96.651 Presence of right artificial knee joint; X58.XXXA Exposure to other specified factors, initial encounter
CPT/HCPCS: 73562

== ENCOUNTER → 2025-05-07 09:15 | Outpatient (CLI) | payer MEDICARE, OTHER, SELFPAY | PROVIDERS: PCP Family Medicine; Referring Provider Family Medicine; Visit Provider Physician Assistant | DX: S81.011A Laceration without foreign body, right knee, initial encounter (principal); Z79.01 Long term (current) use of anticoagulants | CPT/HCPCS: 11042; 11045; 87070; 87077; 87186; 87205; 99203; 99213 ==

== ENCOUNTER → 2025-05-07 15:56 | Outpatient (CLI) | payer MEDICARE, OTHER, SELFPAY | LOC: LAB 05-17 15:56 | PROVIDERS: PCP Family Medicine; Referring Provider Physician Assistant; Visit Provider Physician Assistant | DX: S81.011A Laceration without foreign body, right knee, initial encounter (principal); Z79.01 Long term (current) use of anticoagulants | CPT/HCPCS: 11042; 11045; 87070; 87077; 87186; 87205; 99213 ==

== ENCOUNTER → 2025-05-14 09:13 | Outpatient (CLI) | payer MEDICARE, OTHER, SELFPAY | PROVIDERS: PCP Family Medicine; Referring Provider Family Medicine; Visit Provider Physician Assistant | DX: S81.011A Laceration without foreign body, right knee, initial encounter (principal); Z79.01 Long term (current) use of anticoagulants | CPT/HCPCS: 11042; 11045; 87070; 87075; 87077; 87186; 87205; 99203; 99213 ==

== ENCOUNTER → 2025-05-14 12:30 | Outpatient (CLI) | payer MEDICARE, OTHER, SELFPAY ==
[2025-05-14 12:45] LABS: Add Manual Diff / Slide Review NO; Hematocrit 38.2 % (41-53); Hemoglobin 12.8 g/dL (13.5-17.5); Lymphocytes Absolute Auto 900 /uL (1100-4500); Mean Corpuscular HGB Conc 33.4 % (30-36); Mean Corpuscular Hemoglobin 28.9 PG (26-34); Mean Corpuscular Volume 86.5 fL (80-100); Platelet Count 237 X10^3/uL (150-400)
== END ==
PROVIDERS: PCP Family Medicine; Referring Provider Family Medicine; Visit Provider Physician Assistant
DX: S81.009A Unspecified open wound, unspecified knee, initial encounter (principal); Z96.652 Presence of left artificial knee joint
CPT/HCPCS: 36415; 85025; 85651; 86140

== ENCOUNTER → 2025-05-21 10:54 | Outpatient (CLI) | payer MEDICARE, OTHER, SELFPAY | LOC: WC 12:48 | PROVIDERS: PCP Family Medicine; Referring Provider Family Medicine; Visit Provider Surgery | DX: S81.011A Laceration without foreign body, right knee, initial encounter (principal); R23.4 Changes in skin texture; R60.0 Localized edema; Z96.651 Presence of right artificial knee joint | CPT/HCPCS: 11042; 99212 ==

== ENCOUNTER → 2025-06-04 08:10 | Outpatient (CLI) | payer MEDICARE, OTHER, SELFPAY | LOC: WC 08:22 | PROVIDERS: PCP Family Medicine; Referring Provider Family Medicine; Visit Provider Physician Assistant | DX: S81.011A Laceration without foreign body, right knee, initial encounter (principal); R60.0 Localized edema; R23.4 Changes in skin texture | CPT/HCPCS: 11042; 87070; 87075; 87077; 87147; 87186; 87205; 99213 ==

== ENCOUNTER → 2025-06-11 09:28 | Outpatient (CLI) | payer MEDICARE, OTHER, SELFPAY | PROVIDERS: PCP Family Medicine; Referring Provider Family Medicine; Visit Provider Physician Assistant | DX: S81.011D Laceration without foreign body, right knee, subsequent encounter (principal) | CPT/HCPCS: 99212; 99213 ==